=== PATIENT | female | born 1950 | race Caucasian/White ===

== ENCOUNTER → 2016-10-31 | Outpatient (CLI) | payer OTHER ==
--- NOTE | 2016-11-01 11:31 | MM ---
Reason for exam: screening (asymptomatic). Last mammogram was performed 2 years and 8 months ago. History: Patient is postmenopausal. Family history of breast cancer in grandmother at age 38. Physical Findings: A clinical breast exam by your physician is recommended on an annual basis and results should be correlated with mammographic findings. MG Screening Mammo w CAD Bilateral CC, MLO, and XCCL view(s) were taken. Prior study comparison: February 15, 2014, left breast MG work up mamm w CAD LT. February 08, 2014, bilateral MG screening mammo w CAD. The breast tissue is almost entirely fat. No significant changes when compared with prior studies. ASSESSMENT: Benign, BI-RAD 2 RECOMMENDATION: Routine screening mammogram of both breasts in 1 year.
== END | disposition home or self-care (01) ==
LOC: RADMAMWWP 10:11
PROVIDERS: ATTEND Family Medicine
DX: Z12.31 Encounter for screening mammogram for malignant neoplasm of breast (principal)

== ENCOUNTER 2017-03-24 18:39 | Observation (INO) | payer OTHER ==
[2017-03-24] MEDS ORDERED: SODIUM CHLORIDE 0.9% 500 ML IV STA (19:38)
[2017-03-24] MEDS ORDERED: MORPHINE SULFATE 4 MG/ML SYRINGE IVP STA (19:38)
[2017-03-24] MEDS ORDERED: ASPIRIN 325 MG TAB PO STA (19:38)
[2017-03-24 20:16] LABS: Basophils # (A) 0.1 k/uL (0-0.2); Basophils % (A) 1 %; CH 31.3; CHCM 33.6; Eosinophils # (A) 0.3 k/uL (0-0.7); Eosinophils % (A) 3 %; HCT 43.3 % (34.0-46.0); HDW 2.49; HGB 14.3 gm/dL (11.4-16.0); Luc # (Auto) 0.21; Luc % (Auto) 2; Lymphocytes # (A) 2.8 k/uL (1.0-4.8); Lymphocytes % (A) 29 %; MCH 30.9 pg (25.0-35.0); MCHC 33.1 g/dL (31.0-37.0); MCV 93.6 fL (80.0-100.0); Mean Platelet Volume 7.5; Monocytes # (A) 0.8 k/uL (0-1.0); Monocytes % (A) 8 %; Neutrophils # (A) 5.4 k/uL (1.3-7.7); Neutrophils % (A) 57 %; RBC 4.63 m/uL (3.80-5.40); RDW 13.6 % (11.5-15.5); WBC 9.5 k/uL (3.8-10.6)
--- NOTE | 2017-03-24 20:26 | XR ---
EXAMINATION TYPE: XR chest 2V DATE OF EXAM: 03/24/2017 COMPARISON: NONE HISTORY: Chest pain TECHNIQUE: Frontal and lateral views of the chest are obtained. FINDINGS: There is no heart failure nor confluent pneumonic infiltrate. Costophrenic angles are palmira r. Heart appears enlarged. There are no hilar masses. There are chest leads. IMPRESSION: Cardiomegaly. No active cardiopulmonary disease.
--- NOTE | 2017-03-24 20:29 | XR ---
EXAMINATION TYPE: XR shoulder complete LT DATE OF EXAM: 03/24/2017 COMPARISON: NONE HISTORY: Shoulder pain after a fall TECHNIQUE: 3 views FINDINGS: I see no fracture nor dislocation. Glenohumeral joint appears anatomic. The articular surfa ce of the humeral head is not seen to best advantage. IMPRESSION: Limited exam. No fracture seen. Additional profile views of the shoulder joint might be h elpful for further evaluation.
--- NOTE | 2017-03-24 20:30 | XR ---
EXAMINATION TYPE: XR hand complete RT DATE OF EXAM: 03/24/2017 COMPARISON: 04/24/2012 HISTORY: Pain TECHNIQUE: 3 views FINDINGS: There is narrowing and spurring at the first carpometacarpal joint. There is narrowing of r adiocarpal joint space. There is mild sclerosis in the lunate. There is narrowing of the third MP mario nt space with mild spurring. There is spurring of the IP joints. There are no erosions. IMPRESSION: Osteoarthritis. No fracture seen. No change compared to old exam.
[2017-03-24 20:31] LABS: Anion Gap 11 mmol/L; Blood Urea Nitrogen 20 mg/dL (7-17); Calcium 9.7 mg/dL (8.4-10.2); Carbon Dioxide 24 mmol/L (22-30); Chloride 104 mmol/L (98-107); Glucose 131 mg/dL (74-99); Non-African American GFR(MDRD) >60 (>60 ml/min/1.73 sqM); Sodium 139 mmol/L (137-145)
--- NOTE | 2017-03-24 20:40 | XR ---
EXAMINATION TYPE: XR Hip LT and AP Pelvis DATE OF EXAM: 03/24/2017 COMPARISON: NONE HISTORY: Pain TECHNIQUE: A single AP view of the pelvis is obtained. Two views of the left hip are obtained. Findings Exam is limited slightly by obesity. Pelvic ring appears intact. Sacroiliac joints are intact. Proxim al left femur and hip joint appear intact. IMPRESSION: No acute abnormality of the pelvis and left hip. No fracture seen.
--- NOTE | 2017-03-24 20:42 | XR ---
EXAMINATION TYPE: XR knee limited LT DATE OF EXAM: 03/24/2017 COMPARISON: NONE HISTORY: Pain TECHNIQUE: 2 views FINDINGS: There is severe narrowing of the medial joint space. There is moderate spurring of the femo ral and tibial condyles. There is spurring at patellofemoral joint. I see no fracture. IMPRESSION: Moderately severe osteoarthritis. No fracture.
[2017-03-24] MEDS ORDERED: methylPREDNISolone SOD SUCCI 125 MG/2 ML VIAL IV STA (21:05)
[2017-03-24] MEDS ORDERED: IPRATROPIUM-ALBUTEROL 3 ML NEB INHALATION STA (21:06)
[2017-03-24] MEDS ORDERED: KETOROLAC 30 MG/ML 1 ML VIAL IVP STA (22:02)
[2017-03-24] MEDS ORDERED: HYDROmorphone 1 MG/ML 1 ML SYRINGE IVP STA (22:02)
[2017-03-24] MEDS ORDERED: ONDANSETRON 4 MG/2 ML VIAL IVP PRN (22:06)
[2017-03-24] MEDS ORDERED: NALOXONE 0.4 MG/ML 1 ML VIAL IV PRN (22:06)
[2017-03-24] MEDS ORDERED: MORPHINE SULFATE 4 MG/ML SYRINGE IV PRN (22:06)
[2017-03-24] MEDS ORDERED: KETOROLAC 30 MG/ML 1 ML VIAL IVP PRN (22:06)
--- NOTE | 2017-03-24 22:25 | ED ---
General Adult HPI - General Chief complaint: Fall Stated complaint: fall down 4 cement steps, left shoulder, side hip Source: patient Mode of arrival: wheelchair Limitations: no limitations - History of Present Illness Initial comments: 66-year-old female with significant past medical history is present for evaluation of left-sided injuries secondary to fall down 4 stairs at [facility]. 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 She states that she has pain at her left shoulder, left side of her chest, left hip, and left knee. She was able to walk and ambulate at the scene however she continues to have pain. There is limited range of motion to the left shoulder. She states yesterday she had some chest pressure with shortness of breath this resolved but following the fall she states that it came back and the shortness of breath has persisted since arriving in the ED. She denies any lightheadedness, dizziness, syncope, fevers, chills, nausea, vomiting, abdominal pain. There were no symptoms preceding the fall as it was entirely mechanical. - Related Data Home Medications Medication Instructions Recorded Confirmed Furosemide [Lasix] 40 mg PO DAILY 07/15/14 03/24/17 Hydrochlorothiazide [Hydrodiuril] 12.5 mg PO DAILY 07/15/14 03/24/17 Lisinopril [Prinivil] 20 mg PO DAILY 07/15/14 03/24/17 Meloxicam 15 mg PO DAILY 07/15/14 03/24/17 Albuterol Inhaler [Ventolin Hfa 2 puff INHALATION RT-QID PRN 01/05/16 03/24/17 Inhaler] Aspirin EC [Ecotrin Low Dose] 81 mg PO DAILY 03/24/17 03/24/17 Insulin NPH/Reg Insulin 70/30 22 unit SQ W/SUPPER 03/24/17 03/24/17 [humuLIN 70/30 VIAL] Insulin NPH/Reg Insulin 70/30 30 unit SQ AC-BRKFST 03/24/17 03/24/17 [humuLIN 70/30 VIAL] metFORMIN HCL [Metformin HCl] 1,000 mg PO BID-W/MEALS 03/24/17 03/24/17 Allergies Allergy/AdvReac Type Severity Reaction Status Date / Time egg AdvReac Diarrhea Verified 03/24/17 19:16 Review of Systems ROS Statement: Those systems with pertinent positive or pertinent negative responses have been documented in the HPI. ROS Other: All systems not noted in ROS Statement are negative. Constitutional: Denies: fever, chills Eyes: Denies: eye pain, eye discharge ENT: Denies: ear pain, throat pain Respiratory: Reports: dyspnea. Denies: cough Cardiovascular: Reports: chest pain. Denies: palpitations, dyspnea on exertion , orthopnea Endocrine: Denies: fatigue, heat or cold intolerance Gastrointestinal: Denies: abdominal pain, nausea, vomiting Genitourinary: Denies: urgency, dysuria Musculoskeletal: Reports: other (Left shoulder, left chest, left hip, and left knee pain). Denies: back pain, arthralgia, myalgia Skin: Denies: rash, lesions Neurological: Denies: headache, weakness Psychiatric: Denies: anxiety, depression Hematological/Lymphatic: Denies: easy bleeding, easy bruising Past Medical History Past Medical History: Cancer, Diabetes Mellitus, GERD/Reflux, Osteoarthritis (OA ), Pneumonia Additional Past Medical History / Comment(s): AFTER HEART CATH APPROX 1 YEARS AGO states TAKES Linsinopril As preventative for cad, does not have htn or cad.SKIN CACNER ON HER CHEEK, TAKES TUMS FOR HEARTBURN. RT LEG CELLULITS. History of Any Multi-Drug Resistant Organisms: None Reported Past Surgical History: Section, Heart Catheterization, Hysterectomy Additional Past Surgical History / Comment(s): surgical repair of nose 1981.SKIN CANCER REMOVED FROM HER CHEEK Past Anesthesia/Blood Transfusion Reactions: No Reported Reaction Past Psychological History: No Psychological Hx Reported Smoking Status: Former smoker - Past Family History Father Family Medical History: Deep Vein Thrombosis (DVT) Mother Family Medical History: No Reported History General Exam Limitations: no limitations General appearance: alert, in distress, obese Head exam: Present: atraumatic, normocephalic, normal inspection Eye exam: Present: normal appearance, PERRL, EOMI. Absent: scleral icterus, conjunctival injection, periorbital swelling ENT exam: Present: normal exam, mucous membranes moist Neck exam: Present: normal inspection. Absent: tenderness, meningismus, lymphadenopathy Respiratory exam: Present: normal lung sounds bilaterally, other (Mildly tachypneic). Absent: respiratory distress, wheezes, rales, rhonchi, stridor Cardiovascular Exam: Present: regular rate, normal rhythm, normal heart sounds. Absent: systolic murmur, diastolic murmur, rubs, gallop, clicks GI/Abdominal exam: Present: soft, normal bowel sounds. Absent: distended, tenderness, guarding, rebound, rigid Rectal exam: Present: deferred Extremities exam: Present: normal inspection, full ROM, normal capillary refill. Absent: tenderness, pedal edema, joint swelling, calf tenderness Back exam: Present: normal inspection Neurological exam: Present: alert, oriented X3, CN II-XII intact Psychiatric exam: Present: normal affect, normal mood Skin exam: Present: warm, dry, intact, normal color. Absent: rash Course Vital Signs 03/24/17 03/24/17 03/24/17 18:51 19:58 21:19 Temperature 98.2 F Pulse Rate 71 73 73 Respiratory 20 18 Rate Blood Pressure 111/60 117/68 O2 Sat by Pulse 97 98 Oximetry 03/24/17 03/24/17 03/24/17 21:22 21:43 22:10 Temperature Pulse Rate 73 78 73 Respiratory 18 20 Rate Blood Pressure 113/66 123/70 O2 Sat by Pulse 99 97 Oximetry EKG Findings - EKG Comments: EKG Findings:: Normal Sinus rhythm with a ventricular rate of 71, WA interval 172, QRS 92, QT/QTc 400/434. Medical Decision Making - Medical Decision Making 66-year-old female presenting for evaluation of fall down 4 steps at [facility]. She also states that yesterday she had chest pressure and shortness of breath which started again after the fall down the stairs. She states that her pain is in her left shoulder, left chest, left hip, and left knee. She states that the shortness of breath feels as though she's got water in her lungs that she just not feeling quite herself and she feels exhausted. On physical examination lungs are clear to auscultation bilaterally. She is appropriate oxygen saturation, heart rate, and blood pressure. The patient does not perk out however she is very low risk on well prescription here for PE. Her last stress test was years ago per the patient. We'll perform x-rays to rule out any fractures and obtain labs, EKG, chest x-ray, and provide aspirin for chest pressure and shortness of breath. X-rays revealed no acute process. Labs revealed no significant abnormalities including a negative troponin. The patient however remained in pain throughout her stay and another dose of pain control was provided. She also appeared to have increased work of breathing and was diaphoretic. Breathing treatments and steroids were given but there was no change in her clear lung sounds. She continued to look tired. Admission discussed with the patient and she agreed. Dr. Graham accepted the admission with request for stress test and consult with cardiology. We'll also add on a d-dimer to evaluate for pulmonary embolism. Admission order placed, and bed request and admitted. - Lab Data Result diagrams: 03/24/17 19:50 03/24/17 19:50 Lab Results 03/24/17 03/24/17 03/24/17 Range/Units 19:50 19:50 19:50 WBC 9.5 (3.8-10.6) k/uL RBC 4.63 (3.80-5.40) m/uL Hgb 14.3 (11.4-16.0) gm/dL Hct 43.3 (34.0-46.0) % MCV 93.6 (80.0-100.0) fL MCH 30.9 (25.0-35.0) pg MCHC 33.1 (31.0-37.0) g/dL RDW 13.6 (11.5-15.5) % Plt Count 229 (150-450) k/uL Neutrophils % 57 % Lymphocytes % 29 % Monocytes % 8 % Eosinophils % 3 % Basophils % 1 % Neutrophils # 5.4 (1.3-7.7) k/uL Lymphocytes # 2.8 (1.0-4.8) k/uL Monocytes # 0.8 (0-1.0) k/uL Eosinophils # 0.3 (0-0.7) k/uL Basophils # 0.1 (0-0.2) k/uL D-Dimer (<0.60) mg/L FEU Sodium 139 (137-145) mmol/L Potassium 4.0 (3.5-5.1) mmol/L Chloride 104 (98-107) mmol/L Carbon Dioxide 24 (22-30) mmol/L Anion Gap 11 mmol/L BUN 20 H (7-17) mg/dL Creatinine 0.74 (0.52-1.04) mg/dL Est GFR (MDRD) Af Amer >60 (>60 ml/min/1.73 sqM) Est GFR (MDRD) Non-Af >60 (>60 ml/min/1.73 sqM) Glucose 131 H (74-99) mg/dL Calcium 9.7 (8.4-10.2) mg/dL Troponin I (0.000-0.034) ng/mL NT-Pro-B Natriuret Pep 26 pg/mL 03/24/17 03/24/17 Range/Units 19:50 19:50 WBC (3.8-10.6) k/uL RBC (3.80-5.40) m/uL Hgb (11.4-16.0) gm/dL Hct (34.0-46.0) % MCV (80.0-100.0) fL MCH (25.0-35.0) pg MCHC (31.0-37.0) g/dL RDW (11.5-15.5) % Plt Count (150-450) k/uL Neutrophils % % Lymphocytes % % Monocytes % % Eosinophils % % Basophils % % Neutrophils # (1.3-7.7) k/uL Lymphocytes # (1.0-4.8) k/uL Monocytes # (0-1.0) k/uL Eosinophils # (0-0.7) k/uL Basophils # (0-0.2) k/uL D-Dimer 1.40 H (<0.60) mg/L FEU Sodium (137-145) mmol/L Potassium (3.5-5.1) mmol/L Chloride (98-107) mmol/L Carbon Dioxide (22-30) mmol/L Anion Gap mmol/L BUN (7-17) mg/dL Creatinine (0.52-1.04) mg/dL Est GFR (MDRD) Af Amer (>60 ml/min/1.73 sqM) Est GFR (MDRD) Non-Af (>60 ml/min/1.73 sqM) Glucose (74-99) mg/dL Calcium (8.4-10.2) mg/dL Troponin I <0.012 (0.000-0.034) ng/mL NT-Pro-B Natriuret Pep pg/mL Disposition Clinical Impression: Fall, Shortness of breath, Musculoskeletal pain Disposition: ADMITTED IP TO THIS [facility] Decision to Admit Reason: Admit from EC Decision Date: 03/24/17 Decision Time: 22:21
[2017-03-24 23:23] VITALS: BMI 54.8
[2017-03-24 23:40] LABS: Glucose,Whole Blood 204 mg/dL (75-99)
[2017-03-24] MEDS ORDERED: RX INFO: IV CONTRAST WAS GIVEN 1 EACH MISC MISCELLANE PRN (23:58)
[2017-03-25] MEDS ORDERED: SODIUM CHLORIDE 0.9% 1,000 ML IV SCH (00:15)
[2017-03-25] MEDS: HYDROmorphone 1 MG/ML 1 ML SYRINGE IV PRN ×3 (00:58→18:21)
--- NOTE | 2017-03-25 01:46 | CT ---
EXAM: CT Angiography Chest With Intravenous Contrast CLINICAL HISTORY: Reason: elevated d - dimer with sob and chest pain TECHNIQUE: Axial computed tomographic angiography images of the chest with intravenous contrast using pulmonary embolism protocol. CTDI is 24.4 mGy and DLP is 878 mGy-cm. This CT exam was performed using one or more of the following dose reduction techniques: automated exposure control, adjustment of the mA and/or kV according to patient size, and/or use of iterative reconstruction technique. MIP reconstructed images were created and reviewed. Coronal and sagittal reformatted images were created and reviewed. COMPARISON: CXR 03/24/17 FINDINGS: Pulmonary arteries: Slightly suboptimal evaluation for pulmonary embolism due to noise. No pulmonary embolism seen. Aorta: No acute findings. No thoracic aortic aneurysm. Lungs: Bibasilar platelike atelectasis. Pleural space: Unremarkable. No significant effusion. No pneumothorax. Heart: Mild cardiomegaly. No significant pericardial effusion. No evidence of RV dysfunction. Bones/joints: Multilevel degenerative changes of the spine. No acute fracture. No dislocation. Soft tissues: Unremarkable. Lymph nodes: Unremarkable. No enlarged lymph nodes. IMPRESSION: 1. Slightly suboptimal evaluation for pulmonary embolism due to noise. No pulmonary embolism seen. 2. Bibasilar platelike atelectasis.
[2017-03-25 02:40] LABS: Basophils # (A) 0.1 k/uL (0-0.2); Basophils % (A) 1 %; CH 30.7; CHCM 32.9; Eosinophils % (A) 1 %; HCT 40.4 % (34.0-46.0); HDW 2.55; HGB 13.7 gm/dL (11.4-16.0); Luc # (Auto) 0.06; Luc % (Auto) 1; Lymphocytes # (A) 0.7 k/uL (1.0-4.8); Lymphocytes % (A) 10 %; MCH 31.9 pg (25.0-35.0); MCHC 33.9 g/dL (31.0-37.0); Mean Platelet Volume 7.2; Monocytes # (A) 0.1 k/uL (0-1.0); Monocytes % (A) 2 %; Neutrophils # (A) 5.7 k/uL (1.3-7.7); Neutrophils % (A) 86 %; RDW 13.4 % (11.5-15.5); WBC 6.6 k/uL (3.8-10.6); WBC (Perox) 7.02
[2017-03-25 03:11] LABS: Anion Gap 9 mmol/L; Calcium 9.3 mg/dL (8.4-10.2); Carbon Dioxide 23 mmol/L (22-30); Chloride 106 mmol/L (98-107); Creatine Kinase 261 U/L (30-135); Glucose 266 mg/dL (74-99); Non-African American GFR(MDRD) >60 (>60 ml/min/1.73 sqM); Sodium 138 mmol/L (137-145)
[2017-03-25 03:20] LABS: Blood Urea Nitrogen 20 mg/dL (7-17); Potassium 4.3 mmol/L (3.5-5.1)
[2017-03-25 03:23] LABS: Creatine Kinase MB 1.6 ng/mL (0.0-2.4); Troponin I <0.012 ng/mL (0.000-0.034)
[2017-03-25] MEDS ORDERED: REGADENOSON 0.4 MG/5 ML SYRINGE IV ONE (06:00)
[2017-03-25 07:08] LABS: Glucose,Whole Blood 281 mg/dL (75-99)
[2017-03-25] MEDS ORDERED: metFORMIN 500 MG TAB PO SCH (07:30)
[2017-03-25] MEDS: ALBUTEROL NEBULIZED 2.5 MG/3 ML INHALATION PRN ×3 (08:13→19:43)
[2017-03-25] MEDS ORDERED: HYDROCHLOROTHIAZIDE 12.5 MG CAP PO SCH (09:00)
[2017-03-25 09:24] LABS: Creatine Kinase 211 U/L (30-135)
[2017-03-25 09:36] LABS: Creatine Kinase MB 1.9 ng/mL (0.0-2.4); Troponin I <0.012 ng/mL (0.000-0.034)
[2017-03-25] MEDS: INSULIN NPH/REG INSULIN 70/30 300 UNIT/3 ML VIAL SQ SCH ×2 (10:06→17:44)
[2017-03-25] MEDS: LISINOPRIL 20 MG TAB PO SCH (10:08)
[2017-03-25] MEDS: FUROSEMIDE 40 MG TAB PO SCH (10:08)
[2017-03-25] MEDS: ATORVASTATIN 40 MG TAB PO SCH (11:57)
[2017-03-25] MEDS: ASPIRIN 81 MG CHEW PO SCH (11:57)
[2017-03-25] MEDS: MELOXICAM 7.5 MG TAB PO SCH (11:57)
--- NOTE | 2017-03-25 11:59 | CONS ---
DATE OF CONSULTATION: Mrs. Quesada is a 66-year-old female who is seen for the evaluation of chest pain. Patient's medical records reviewed. This patient fell down the four stairs at [employer]. She was walking out of the [employer], tripped over the stairs and fell on her left side. Patient has been having pain in her left shoulder, left side of the chest, left hip and left knee. The patient was evaluated in the emergency room, she had a CT scan of the chest done which was normal. Chest x-ray and the x-rays are normal. There is no definite evidence of any fracture. Patient having complaints of left-sided chest pain, which increases with breathing. Denies any significant shortness of breath. Patient has a history of diabetes. There is no history of hypertension. She had a cardiac catheterization done several years ago which was normal. Patient's physical activities are limited because of the arthritis and the pain in the back. Past medical history includes history of diabetes, history of , history of hysterectomy, surgical repair of the nose and the skin cancer. Patient's home medications include insulin, metformin, aspirin, Prinivil, Lasix, hydrochlorothiazide. Physical examination at present reveals a 66-year-old obesely-built, has been having left-sided chest pain. Patient was afebrile in the emergency room. Blood pressure is 117/68 mmHg. HEENT examination is negative. Neck is supple. There is no increase in jugular venous pressure. Both the carotid pulses are felt. There is no bruit. Chest is symmetrical. HEART: The PMI is not felt. First and second heart sounds are normal. There is no evidence of any murmur. Lungs are clinically clear to auscultation and percussion. Abdomen is soft. Liver and spleen are not enlarged. EXTREMITIES: Peripheral pulsations are 2+. EKG shows normal sinus rhythm without any acute ischemic changes. Patient's troponins are normal, proBNP level was 26. FINAL IMPRESSION: 1. This patient's left-sided chest pain is secondary to injury, mostly musculoskeletal chest wall pain. The x-ray does not show any definite evidence of fracture. 2. Patient has a history of diabetes. 3. Patient has a history of morbid obesity. RECOMMENDATIONS: Symptomatic medical therapy is recommended. Echo and Doppler study will be done. In view of the history of diabetes, I will start the patient on Lipitor 40 mg daily.
[2017-03-25 12:23] LABS: Glucose,Whole Blood 235 mg/dL (75-99)
[2017-03-25 17:21] LABS: Glucose,Whole Blood 179 mg/dL (75-99)
[2017-03-25 17:41] LABS: Hemoglobin A1C 6.1 % (4.2-6.1)
[2017-03-25] MEDS: INSULIN LISPRO (humaLOG) 300 UNIT/3 ML VIAL SQ SCH ×3 (17:45→21:35)
[2017-03-25 21:03] LABS: Glucose,Whole Blood 166 mg/dL (75-99)
[2017-03-26 06:37] LABS: Glucose,Whole Blood 148 mg/dL (75-99)
[2017-03-26] MEDS: ALBUTEROL NEBULIZED 2.5 MG/3 ML INHALATION PRN ×2 (07:15→13:19)
[2017-03-26] MEDS: INSULIN LISPRO (humaLOG) 300 UNIT/3 ML VIAL SQ SCH ×5 (07:59→18:04)
[2017-03-26] MEDS: INSULIN NPH/REG INSULIN 70/30 300 UNIT/3 ML VIAL SQ SCH ×2 (08:00→18:04)
[2017-03-26] MEDS: MELOXICAM 7.5 MG TAB PO SCH (08:03)
[2017-03-26] MEDS: LISINOPRIL 20 MG TAB PO SCH (08:05)
[2017-03-26] MEDS: FUROSEMIDE 40 MG TAB PO SCH (08:05)
[2017-03-26] MEDS: ATORVASTATIN 40 MG TAB PO SCH (08:05)
[2017-03-26] MEDS: ASPIRIN 81 MG CHEW PO SCH (08:06)
[2017-03-26 12:11] LABS: Glucose,Whole Blood 109 mg/dL (75-99)
[2017-03-26] MEDS: HYDROmorphone 1 MG/ML 1 ML SYRINGE IV PRN (14:23)
[2017-03-26 15:48] VITALS: BP 98/57; RESP 18; TEMP 97.5
[2017-03-26 16:39] VITALS: PULSE 63
[2017-03-26 17:25] LABS: Glucose,Whole Blood 120 mg/dL (75-99)
[2017-03-27] MEDS ORDERED: metFORMIN 500 MG TAB PO SCH (07:30)
--- NOTE | 2017-03-27 09:51 | ECHOF ---
Referral Reason:chest pain MEASUREMENTS -------- HEIGHT: 157.5 cm WEIGHT: 136.1 kg BP: 117/63 Ao Diam: 3.0 cm (2.0 - 3.7) AV Cusp: 1.8 cm (1.5 - 2.6) LA Diam: 2.3 cm (2.7 - 3.8) MV EXCURSION: 20.824 mm (> 18.000) MV EF SLOPE: 148 mm/s (70 - 150) EPSS: 0.4 cm MV E George: 0.68 m/s MV DecT: 276 ms MV A George: 0.49 m/s MV E/A Ratio: 1.39 RAP: 5.00 mmHg RVSP: 12.89 mmHg FINDINGS -------- Sinus rhythm. This was a technically difficult study with suboptimal views. There is mild concentric left ventricular hypertrophy. Overall left ventricular systolic function is normal with, an EF between 55 - 60 %. The RV was not well visualized. The left atrium was not well visualized. The right atrium was not well visualized. 1.5mg of Definity was utilized for enhancement of images The aortic valve was not well visualized. The mitral valve was not well visualized. The tricuspid valve was not well visualized. The pulmonic valve was not well visualized. The aortic root size is normal. The inferior vena cava is dilated with poor inspiratory collapse which is consistent with estimated right atrial pressure of 20 mmHg. The pericardium is normal. There is no pericardial effusion. CONCLUSIONS -------- 1. Sinus rhythm. 2. The mitral valve was not well visualized. 3. The tricuspid valve was not well visualized. 4. The pulmonic valve was not well visualized. 5. The aortic root size is normal. 6. The inferior vena cava is dilated with poor inspiratory collapse which is consistent with estimated right atrial pressure of 20 mmHg. 7. The pericardium is normal. 8. There is no pericardial effusion. 9. This was a technically difficult study with suboptimal views. 10. There is mild concentric left ventricular hypertrophy. 11. Overall left ventricular systolic function is normal with, an EF between 55 - 60 %. 12. The RV was not well visualized. 13. The left atrium was not well visualized. 14. The right atrium was not well visualized. 15. 1.5mg of Definity was utilized for enhancement of images 16. The aortic valve was not well visualized. GROUND [employer]QUIPMENT FITTER: Elan Garcia RDCS
== END 2017-03-26 19:00 | disposition home or self-care (01) ==
LOC: EC 18:39 → 3OBS 22:07
PROVIDERS: ADMIT Family Medicine; ATTEND Family Medicine
DX: R07.89 Other chest pain (principal); E11.9 Type 2 diabetes mellitus without complications; E66.01 Morbid (severe) obesity due to excess calories; Z68.43 Body mass index [BMI] 50.0-59.9, adult; R06.02 Shortness of breath; R61 Generalized hyperhidrosis; M25.552 Pain in left hip; M25.562 Pain in left knee; M25.512 Pain in left shoulder; R79.89 Other specified abnormal findings of blood chemistry; M54.9 Dorsalgia, unspecified; M19.90 Unspecified osteoarthritis, unspecified site; Z79.4 Long term (current) use of insulin; Z79.899 Other long term (current) drug therapy; Z79.84 Long term (current) use of oral hypoglycemic drugs; Z79.82 Long term (current) use of aspirin; Z79.1 Long term (current) use of non-steroidal anti-inflammatories (NSAID); Z91.012 Allergy to eggs; Z87.01 Personal history of pneumonia (recurrent); Z85.828 Personal history of other malignant neoplasm of skin; Z87.891 Personal history of nicotine dependence; W10.9XXA Fall (on) (from) unspecified stairs and steps, initial encounter; Y92.22 Religious institution as the place of occurrence of the external cause
CPT/HCPCS: 99285; 96361 ×2; 96374 ×2; 96375 ×4; 96376 ×2; 36415; 94640 ×5; 94760 ×2; 93005; 85379; 83880; 80048 ×2; 83036; 82550; 82553; 84484 ×2; 85025 ×2; 71020; 73030; 73502; 73130; 73560; 71275; G0378 ×3; C8929; J2270; J2930; Q9967; J1885; Q9957; J1170 ×3; 93306

== ENCOUNTER → 2021-08-30 | Outpatient (CLI) | payer MEDICARE, OTHER ==
--- NOTE | 2021-08-31 07:45 | US ---
EXAMINATION TYPE: US kidneys/renal and bladder DATE OF EXAM: 08/30/2021 COMPARISON: NONE CLINICAL HISTORY: N28.1 Renal cyst. Pt states possible right renal cyst visualized at outside facilit y EXAM MEASUREMENTS: Right Kidney: 11.5 x 4.2 x 5.3 cm Left Kidney: 10.6 x 5.3 x 5.1 cm Right Kidney: No evidence of hydro, probable small cyst mid/lateral= 1.1 x 0.8 x 1.1 cm Left Kidney: No evidence of hydro, very limited visualization due to morbidly obese pt Bladder: Unable to visualize due to morbid obesity There is no evidence for hydronephrosis at this point in time. No nephrolithiasis is seen. No solid masses are identified. The urinary bladder is anechoic. Bilateral ureteral jets are seen. IMPRESSION: Right renal cyst as noted above.
== END | disposition home or self-care (01) ==
LOC: RADUSWWP 16:30
PROVIDERS: ATTEND Urology
DX: N28.1 Cyst of kidney, acquired (principal)
CPT/HCPCS: 76770

== ENCOUNTER 2022-10-17 12:45 | Emergency (ER) | payer MEDICARE, OTHER ==
[2022-10-17 13:03] VITALS: RESP 20; TEMP 97.4
--- NOTE | 2022-10-17 14:02 | XR ---
EXAMINATION TYPE: XR knee complete RT DATE OF EXAM: 10/17/2022 COMPARISON: NONE HISTORY: Pain TECHNIQUE: Three views are submitted. FINDINGS: There is severe narrowing of the medial compartment knee joint and patellofemoral compartment with hy pertrophic spurring. Diffuse osteopenia. There is no acute fracture or dislocation. Small suprapatell ar bursal fluid collection noted. Osseous structures are intact. No acute fracture seen. IMPRESSION: 1. No acute fracture or dislocation. 2. Severe osteoarthritis.
--- NOTE | 2022-10-17 14:03 | XR ---
EXAM TYPE: LUMBAR SPINE X RAY SERIES COMPARISON: NONE HISTORY: Pain TECHNIQUE: 3 views are submitted. FINDINGS: Alignment is anatomic. The pedicles are intact. The transverse processes are intact. There is scol iosis with severe multilevel degenerative disc disease and facet arthropathy. Multilevel foraminal en croachment. IMPRESSION: 1. Severe multilevel degenerative disc disease with scoliosis and multilevel foraminal encroachment.
--- NOTE | 2022-10-17 14:05 | XR ---
EXAMINATION TYPE: XR thoracic spine 2V DATE OF EXAM: 10/17/2022 COMPARISON: NONE HISTORY: Pain TECHNIQUE: 3 views submitted FINDINGS: Alignment is anatomic. There is no compression deformities. Scoliosis with severe multilevel degener ative disc disease and facet arthropathy. Coarsened interstitial cardiomegaly. IMPRESSION: 1. Scoliosis with severe degenerative disc disease at all levels. No definite compression deformities seen. 2. Cardiomegaly correlate for chronic interstitial lung disease.
--- NOTE | 2022-10-17 14:32 | CT ---
EXAMINATION TYPE: CT brain jose turner con DATE OF EXAM: 10/17/2022 COMPARISON: None HISTORY: fall, weakness CT DLP: 1856.7 mGycm Automated exposure control for dose reduction was used. TECHNIQUE: CT scan of the head and cervical spine are performed without contrast. FINDINGS: There is no acute intracranial hemorrhage, mass effect, or midline shift identified. The ventricles and sulci are mild degenerative change.. The globes are intact and the visualized sinuse s are clear. Right basal ganglia calcification seen. There is a questionable soft tissue fullness on the posterior soft tissues adjacent to the trachea on the right most likely in the basis of superimposed structures and noncontrast technique. Alignment is anatomic. Odontoid intact. There is severe degenerative disc disease, posterior spondylo sis, uncovertebral joint hypertrophy, and foraminal encroachment at virtually all levels. No obvious acute fracture. Prevertebral soft tissue structures are within normal limits. IMPRESSION: 1. There is no acute fracture or dislocation evident in the cervical spine. Severe degenerative disc disease at all levels with multilevel foraminal encroachment consider follow-up MRI. 2. No acute intracranial hemorrhage, mass effect, or midline shift is seen. 3. Mild soft tissue fullness in the posterior right paratracheal region may be related to noncontrast technique and superimposed structures but could be followed up with short-term ultrasound or CT soft tissue neck.
[2022-10-17] MEDS ORDERED: Acetaminophen-Codeine 300-30mg TAB PO STA (14:42)
--- NOTE | 2022-10-17 14:42 | ED ---
Fall HPI - General Chief Complaint: Fall Stated Complaint: fall, generalized weakness Time Seen by Provider: 10/17/22 12:58 Source: patient, EMS Mode of arrival: EMS - History of Present Illness Initial Comments: Patient complains of injuries from an accidental trip and fall. She has no chest pain. She has no belly pain. She has no nausea or vomiting. She has no diaphoresis. She has no focal deficits. She had no loss of consciousness. - Related Data Home Medications Medication Instructions Recorded Confirmed Furosemide [Lasix] 40 mg PO DAILY 07/15/14 03/24/17 Meloxicam 15 mg PO DAILY 07/15/14 03/24/17 hydroCHLOROthiazide [Hydrodiuril] 12.5 mg PO DAILY 07/15/14 03/24/17 lisinopriL [Prinivil] 20 mg PO DAILY 07/15/14 03/24/17 Albuterol Inhaler [Ventolin Hfa 2 puff INHALATION RT-QID PRN 01/05/16 03/24/17 Inhaler] Aspirin EC [Ecotrin Low Dose] 81 mg PO DAILY 03/24/17 03/24/17 Insulin NPH/Reg Insulin 70/30 22 unit SQ W/SUPPER 03/24/17 03/24/17 [humuLIN 70/30 VIAL] Insulin NPH/Reg Insulin 70/30 30 unit SQ AC-BRKFST 03/24/17 03/24/17 [humuLIN 70/30 VIAL] metFORMIN HCL 1,000 mg PO BID-W/MEALS 03/24/17 03/24/17 Previous Rx's Medication Instructions Recorded Atorvastatin [Lipitor] 40 mg PO DAILY #90 tab 03/26/17 Allergies Allergy/AdvReac Type Severity Reaction Status Date / Time egg AdvReac Diarrhea Verified 03/24/17 19:16 Review of Systems ROS Statement: Those systems with pertinent positive or pertinent negative responses have been documented in the HPI. ROS Other: All systems not noted in ROS Statement are negative. Past Medical History Past Medical History: Cancer, Diabetes Mellitus, GERD/Reflux, Osteoarthritis (OA), Pneumonia Additional Past Medical History / Comment(s): AFTER HEART CATH APPROX 1 YEARS AGO states TAKES Linsinopril As preventative for cad, does not have htn or cad.SKIN CACNER ON HER CHEEK, TAKES TUMS FOR HEARTBURN. RT LEG CELLULITS. History of Any Multi-Drug Resistant Organisms: None Reported Past Surgical History: Section, Heart Catheterization, Hysterectomy Additional Past Surgical History / Comment(s): surgical repair of nose 1982.SKIN CANCER REMOVED FROM HER CHEEK Past Anesthesia/Blood Transfusion Reactions: No Reported Reaction Past Psychological History: No Psychological Hx Reported - Past Family History Father Family Medical History: Deep Vein Thrombosis (DVT) Mother Family Medical History: No Reported History General Exam General appearance: alert, in no apparent distress Head exam: Present: atraumatic, normocephalic, normal inspection Eye exam: Present: normal appearance, PERRL, EOMI. Absent: scleral icterus, conjunctival injection, periorbital swelling ENT exam: Present: normal exam, mucous membranes moist Neck exam: Present: normal inspection. Absent: tenderness, meningismus, lymphadenopathy Respiratory exam: Present: normal lung sounds bilaterally. Absent: respiratory distress, wheezes, rales, rhonchi, stridor Cardiovascular Exam: Present: regular rate, normal rhythm, normal heart sounds. Absent: systolic murmur, diastolic murmur, rubs, gallop, clicks GI/Abdominal exam: Present: soft, normal bowel sounds. Absent: distended, tenderness, guarding, rebound, rigid Extremities exam: Present: normal inspection, full ROM, normal capillary refill. Absent: tenderness, pedal edema, joint swelling, calf tenderness Back exam: Present: normal inspection Neurological exam: Present: alert, oriented X3, CN II-XII intact Psychiatric exam: Present: normal affect, normal mood Skin exam: Present: warm, dry, intact, normal color. Absent: rash Course Vital Signs 10/17/22 10/17/22 12:59 13:03 Temperature 97.4 F L Pulse Rate 90 Respiratory 20 Rate Blood Pressure 82/57 102/62 O2 Sat by Pulse 97 Oximetry Medical Decision Making - Medical Decision Making Patient complains of injuries from an accidental fall. I obtained a CT head and cervical spine I independently reviewed and read showing no acute intracranial bleed or mass or fracture. X-ray of the right knee wasn't reviewed and read by me showing no fracture. I considered additional imaging of the chest and pelvis, however the patient has no injuries or tenderness there. I consider laboratory studies, the patient has no metabolic complaints. Patient is administered pain medicine by mouth. She feels better. There is no acute emergency requiring hospitalization. She is stable for discharge. Disposition Clinical Impression: Knee pain Disposition: HOME SELF-CARE Condition: Good Instructions (If sedation given, give patient instructions): Fall Prevention for Older Adults (ED) Is patient prescribed a controlled substance at d/c from ED?: No Referrals: Dirk Butler DO [Primary Care Provider] - 1-2 days
[2022-10-17 14:56] VITALS: BP 111/78; PULSE 92
== END 2022-10-17 16:12 | disposition home or self-care (01) ==
LOC: EC 12:45
DX: M25.561 Pain in right knee (principal); E11.9 Type 2 diabetes mellitus without complications; I25.10 Atherosclerotic heart disease of native coronary artery without angina pectoris; Z79.82 Long term (current) use of aspirin; Z79.84 Long term (current) use of oral hypoglycemic drugs; Z91.012 Allergy to eggs; W01.0XXA Fall on same level from slipping, tripping and stumbling without subsequent striking against object, initial encounter
CPT/HCPCS: 70450; 72070; 72100; 72125; 99285

== ENCOUNTER 2022-10-19 14:53 | Inpatient (IN) | payer MEDICARE, OTHER ==
--- NOTE | 2022-10-19 15:21 | CT ---
EXAMINATION TYPE: CT brain wo con DATE OF EXAM: 10/19/2022 COMPARISON: None HISTORY: 72 year-old female right-sided weakness, pain, headache, dysphasia which seems to have resol yaima. TECHNIQUE: Examination was done in axial plane without intravenous contrast. Coronal and sagittal r econstructions performed. CT DLP: 1146.6 mGycm Automated exposure control for dose reduction was used. FINDINGS: There is no evidence of acute intracranial hemorrhage, acute ischemic changes, mass, mass-effect, or extra-axial fluid collection. There is no effacement of cerebral sulci or basal subarachnoid cister ns. There is no hydrocephalus. There is no midline shift. Montes-white matter distinction is preserv ed. The anterior nasal septum is deviated toward the left. Orbits and globes are intact. Paranasal sinuse s and mastoid air cells well pneumatized. IMPRESSION: No acute intracranial abnormality seen.
[2022-10-19 16:12] LABS: Anisocytosis Slight; Basophils # (A) 0.1 k/uL (0-0.2); Basophils % (A) 1 %; Eosinophils # (A) 0.2 k/uL (0-0.7); Eosinophils % (A) 3 %; HCT 26.9 % (34.0-46.0); HGB 8.4 gm/dL (11.4-16.0); Hypochromasia Slight; Lymphocytes # (A) 1.1 k/uL (1.0-4.8); Lymphocytes % (A) 16 %; MCH 25.2 pg (25.0-35.0); MCHC 31.3 g/dL (31.0-37.0); MCV 80.3 fL (80.0-100.0); Mean Platelet Volume 7.8; Microcytosis Slight; Monocytes # (A) 0.7 k/uL (0-1.0); Monocytes % (A) 10 %; Neutrophils # (A) 4.5 k/uL (1.3-7.7); Neutrophils % (A) 67 %; Platelet Count 281 k/uL (150-450); RBC 3.36 m/uL (3.80-5.40); WBC 6.7 k/uL (3.8-10.6)
[2022-10-19 16:19] LABS: Partial Thromboplastin Time 23.5 sec (22.0-30.0); Prothrombin Time 10.4 sec (9.0-12.0)
--- NOTE | 2022-10-19 16:35 | CT ---
EXAMINATION TYPE: CT angio head neck DATE OF EXAM: 10/19/2022 COMPARISON: Brain same day HISTORY: 72-year-old female aphasia, right side weakness TECHNIQUE: Contiguous axial scanning of the head and neck performed with IV Contrast, patient injecte d with 130 mL of Isovue 370. Coronal/sagittal reconstructions performed. CT DLP: 2186.3 mGycm Automated exposure control for dose reduction was used. FINDINGS: 3-D reconstructions generated on a dedicated independent workstation. The patient was injected twice as the initial scan was delayed due to patient movement resulting in missed triggering. The second scan is better but remains limited due to large body habitus and slight delay. NECK: Heart mildly enlarged. Groundglass changes in the lungs could be generalized atelectasis or pulmonary vascular congestion are interstitial pneumonitis. Clinically correlate. Conventional arch vessel branching anatomy. The vertebral arteries appear codominant and patent throughout the course. The left common and left internal carotid arteries are widely patent by neck criteria. The right common and right internal carotid arteries are widely patent thoracic criteria. 1 cm hypodense nodule left thyroid lobe can be further evaluated with thyroid ultrasound when patient able. HEAD: Both vertebral and basilar arteries appear patent as does the posterior circulation. Unable to exclud e a moderate focal stenosis at the junction of the P1 and P2 segment right SUPERINTENDENT FACTORY, thin cut axial image 223. Mild apical scarring calcifications within the glenoid and supraclinoid internal carotid arteries. Al lowing for exam limitations, no significant narrowing or occlusion is seen. Remainder of the anterior circulation appears grossly patent as well along for the exam limitations. IMPRESSION: Neck: 1. Widely patent vertebral and carotid arteries of the neck allowing for examination limitations. 2. Cardiomegaly. Groundglass changes in the visualized lungs could represent generalized atelectasis. Correlate to exclude pulmonary vascular congestion. Head: 3. Possible moderate focal stenosis at the junction of the P1 and P2 segment of the right SUPERINTENDENT [employer]CTORY. 4. Otherwise, allowing for the exam limitations, no evident large vessel intracranial arterial occlus ion. No other significant stenosis or aneurysmal change is seen.
[2022-10-19 16:39] LABS: Albumin 3.3 g/dL (3.5-5.0); Calcium 8.3 mg/dL (8.4-10.2); Potassium 4.4 mmol/L (3.5-5.1); Total Bilirubin 0.5 mg/dL (0.2-1.3); Total Protein 7.3 g/dL (6.3-8.2)
--- NOTE | 2022-10-19 16:57 | XR ---
EXAMINATION TYPE: XR chest 2V DATE OF EXAM: 10/19/2022 COMPARISON: 03/24/2017 HISTORY: Altered mental status TECHNIQUE: 2 view FINDINGS: There is no heart failure nor confluent pneumonic infiltrate. Costophrenic angles are clear . Thoracic aorta is atheromatous. No pleural effusion. Bony thorax is intact. IMPRESSION: No active cardiopulmonary disease. No change
--- NOTE | 2022-10-19 17:48 | ED ---
General Adult HPI - General Chief complaint: Neuro Symptoms/Deficit Stated complaint: neuro deficit Time Seen by Provider: 10/19/22 14:58 Source: patient, EMS Mode of arrival: EMS - History of Present Illness Initial comments: This is a 72-year-old female with extensive past medical history presents emergency department via EMS for right upper or right lower extremity weakness. The patient was just discharged from the hospital yesterday and stated that she was at home when approximately at 9:30 AM, the patient stated that she had a headache and then had weakness in the right lower and right upper extremity. The patient contacted her physician who told her to come to the emergency department for evaluation. The patient did arrive later in the afternoon. On arrival, the patient stated that she had some increasing shakiness in the right upper extremity stated that her reported weakness was the same. The patient denied any other acute pain or complaints including any lightheadedness, dizziness as well as any chest pain or shortness of breath. The patient was resting in bed comfortably. - Related Data Home Medications Medication Instructions Recorded Confirmed lisinopriL [Prinivil] 20 mg PO DAILY 07/15/14 10/19/22 Albuterol Inhaler [Ventolin Hfa 2 puff INHALATION RT-Q6H PRN 01/05/16 10/19/22 Inhaler] Atorvastatin [Lipitor] 40 mg PO HS 10/19/22 10/19/22 DULoxetine HCL [Cymbalta] 60 mg PO HS 10/19/22 10/19/22 Dulaglutide [Trulicity] 0.75 mg SQ ALATORRE 10/19/22 10/19/22 Ergocalciferol [Vitamin D2 (1250 1,250 mcg PO ALATORRE 10/19/22 10/19/22 Mcg = 08905 Iu)] Furosemide [Lasix] 20 mg PO DAILY 10/19/22 10/19/22 Gabapentin [Neurontin] 300 mg PO TID 10/19/22 10/19/22 Insulin Aspart Prot/Insuln Asp 14 unit SQ W/SUPPER 10/19/22 10/19/22 [Novolog Mix 70-30 Flexpen] Insulin Aspart Prot/Insuln Asp 20 unit SQ W/BRKFST 10/19/22 10/19/22 [Novolog Mix 70-30 Flexpen] Potassium Chloride ER [K-Dur 10] 10 meq PO DAILY 10/19/22 10/19/22 tiZANidine [Zanaflex] 4 mg PO BID 10/19/22 10/19/22 traMADol HCL 50 mg PO TID PRN 10/19/22 10/19/22 Allergies Allergy/AdvReac Type Severity Reaction Status Date / Time egg AdvReac Diarrhea Verified 10/19/22 16:56 Review of Systems ROS Statement: Those systems with pertinent positive or pertinent negative responses have been documented in the HPI. ROS Other: All systems not noted in ROS Statement are negative. Past Medical History Past Medical History: Cancer, Diabetes Mellitus, GERD/Reflux, Osteoarthritis (OA), Pneumonia Additional Past Medical History / Comment(s): AFTER HEART CATH APPROX 1 YEARS AGO states TAKES Linsinopril As preventative for cad, does not have htn or cad.SKIN CACNER ON HER CHEEK, TAKES TUMS FOR HEARTBURN. RT LEG CELLULITS. History of Any Multi-Drug Resistant Organisms: None Reported Past Surgical History: Section, Heart Catheterization, Hysterectomy Additional Past Surgical History / Comment(s): surgical repair of nose 1981.SKIN CANCER REMOVED FROM HER CHEEK Past Anesthesia/Blood Transfusion Reactions: No Reported Reaction Past Psychological History: No Psychological Hx Reported Past Alcohol Use History: Rare Past Drug Use History: None Reported - Past Family History Father Family Medical History: Deep Vein Thrombosis (DVT) Mother Family Medical History: No Reported History General Exam Limitations: no limitations General appearance: alert, in no apparent distress, obese Head exam: Present: atraumatic, normocephalic, normal inspection Eye exam: Present: normal appearance, PERRL Pupils: Present: normal accommodation ENT exam: Present: normal exam, normal oropharynx, mucous membranes moist Neck exam: Present: normal inspection, full ROM Respiratory exam: Present: normal lung sounds bilaterally Cardiovascular Exam: Present: regular rate, normal rhythm, normal heart sounds GI/Abdominal exam: Present: soft, normal bowel sounds Extremities exam: Present: normal inspection, pedal edema (Chronic lymphedema) Back exam: Present: normal inspection, full ROM Neurological exam: Present: alert, oriented X3, CN II-XII intact, other (Slightly decreased strength in the right upper extremity versus left upper extremity. Bilateral lower extremities had significant weakness secondary to chronic lymphedema) Psychiatric exam: Present: normal affect, normal mood Skin exam: Present: warm, dry Course Vital Signs 0110/19/22 10/19/22 14:57 15:46 16:15 Temperature 97.7 F Pulse Rate 97 101 H 99 Respiratory 18 20 21 Rate Blood Pressure 136/87 127/86 144/88 O2 Sat by Pulse 96 92 L Oximetry 10/19/22 10/19/22 10/19/22 16:30 16:45 17:00 Temperature Pulse Rate 97 98 Respiratory 19 20 Rate Blood Pressure 143/98 121/75 O2 Sat by Pulse 94 L 100 Oximetry 10/19/22 10/19/22 10/19/22 17:15 17:30 17:45 Temperature Pulse Rate 100 103 H 100 Respiratory 20 22 20 Rate Blood Pressure 159/90 157/90 157/90 O2 Sat by Pulse 97 Oximetry 10/19/22 10/19/22 10/19/22 18:01 18:15 18:45 Temperature Pulse Rate 106 H 99 104 H Respiratory 20 20 Rate Blood Pressure 158/83 121/75 159/97 O2 Sat by Pulse 96 94 L 93 L Oximetry EKG Findings - EKG Comments: EKG Findings:: In EKG was obtained and was interpreted by myself showing a rate of 101, WI interval of 188, QRS duration of 103 and QTC of 4:15. This EKG showed a sinus tachycardia with no ST segment elevation or depression noted. Medical Decision Making - Medical Decision Making Was pt. sent in by a medical professional or institution ([facility], [facility], urgent care, hospital, or snf...) When possible be specific @ -No Did you speak to anyone other than the patient for history (EMS, parent, family, police, friend...)? What history was obtained from this source @ -Yes, EMS Did you review nursing and triage notes (agree or disagree)? Why? @ -I reviewed and agree with nursing and triage notes Were old charts reviewed (outside hosp., previous admission, EMS record, old EKG, old radiological studies, urgent care reports/EKG's, snf records)? Report findings @ -No old charts were reviewed Differential Diagnosis (chest pain, altered mental status, abdominal pain women, abdominal pain men, vaginal bleeding, weakness, fever, dyspnea, syncope, headache, dizziness, GI bleed, back pain, seizure, CVA, palpatations, mental health)? @ -Acute CVA, sepsis EKG interpreted by me (3pts min.). @ -As above X-rays interpreted by me (1pt min.). @ -Chest x-ray was obtained and interpreted by myself showing no acute cardiopulmonary disease. CT interpreted by me (1pt min.). @ -CT head and CTA head and neck per stroke protocol was obtained and was interpreted by myself. CT brain showed no acute pathology. CTA of the head and neck showed widely patent vertebral carotid arteries of the neck. There was cardiomegaly with ground glass changes visualized lungs that could represent an was atelectasis. There is possible moderate focal stenosis at the junction of the P1 and P2 segment of the right PREPARATORY TECHNICIAN. Otherwise there was no large vessel intracranial arterial occlusion. U/S interpreted by me (1pt. min.). @ -None done What testing was considered but not performed or refused? (CT, X-rays, U/S, labs)? Why? @ -None What meds were considered but not given or refused? Why? @ -None Did you discuss the management of the patient with other professionals (professionals i.e. , PA, [facility], lab, RT, psych nurse, psychotherapist social worker, bus attendant, teacher, identification officer, mental health case manager)? Give summary @ -Yes, neuro interventionalist, Dr. Johnson and admitted [facility] Alyce Vazquez Was smoking cessation discussed for >3mins.? @ -No Was critical care preformed (if so, how long)? @ -Yes, see above Were there social determinants of health that impacted care today? How? (Homelessness, low income, unemployed, alcoholism, drug addiction, tra nsportation, low edu. Level, literacy, decrease access to med. care, alf, rehab)? @ -No Was there de-escalation of care discussed even if they declined (Discuss DNR or withdrawal of care, Hospice)? DNR status @ -No What co-morbidities impacted this encounter? (DM, HTN, Smoking, COPD, CAD, Cancer, CVA, ARF, Chemo, Hep., AIDS, mental health diagnosis, sleep apnea, morbid obesity)? @ -Hypertension, chronic pain, diabetes, obesity Was patient admitted / discharged? Hospital course, mention meds given and route, prescriptions, significant lab abnormalities, going to OR and other pert inent info. @ -The patient was seen and evaluated emergency department. Physical exam, the patient was resting in bed without any acute distress. Vital signs were stable on admission. Due to the patient's complaints, a code stroke was called initially on arrival at 1501. The initial NIH was 3. The patient was outside the window did not require any TPA at this time. Imaging was largely unremarkable and Dr. Johnson agree with the plan of care including stroke pathway without TPA. The patient was told of this plan as well was admitted in stable condition for further workup and evaluation down the stroke pathway. Undiagnosed new problem with uncertain prognosis? @ -No Drug Therapy requiring intensive monitoring for toxicity (Heparin, Nitro, Insulin, Cardizem)? @ -No Were any procedures done? @ -No Diagnosis/symptom? @ -CVA Acute, or Chronic, or Acute on Chronic? @ -Acute Uncomplicated (without systemic symptoms) or Complicated (systemic symptoms)? @ -Complicated Side effects of treatment? @ -No Exacerbation, Progression, or Severe Exacerbation? @ -No Poses a threat to life or bodily function? How? (Chest pain, [place], HI, pneumonia, PE, COPD, DKA, ARF, appy, cholecystitis, CVA, Diverticulitis, Homicidal, Suicidal, threat to staff... and all critical care pts) @ -Yes, CVA could worsening cause worsening deficit and possible . - Lab Data Result diagrams: 10/19/22 15:51 10/19/22 15:51 Lab Results 10/19/22 10/19/22 10/19/22 Range/Units 15:51 15:51 15:51 WBC 6.7 (3.8-10.6) k/uL RBC 3.36 L (3.80-5.40) m/uL Hgb 8.4 L (11.4-16.0) gm/dL Hct 26.9 L (34.0-46.0) % MCV 80.3 (80.0-100.0) fL MCH 25.2 (25.0-35.0) pg MCHC 31.3 (31.0-37.0) g/dL RDW 17.0 H (11.5-15.5) % Plt Count 281 (150-450) k/uL MPV 7.8 Neutrophils % 67 % Lymphocytes % 16 % Monocytes % 10 % Eosinophils % 3 % Basophils % 1 % Neutrophils # 4.5 (1.3-7.7) k/uL Lymphocytes # 1.1 (1.0-4.8) k/uL Monocytes # 0.7 (0-1.0) k/uL Eosinophils # 0.2 (0-0.7) k/uL Basophils # 0.1 (0-0.2) k/uL Hypochromasia Slight Anisocytosis Slight Microcytosis Slight PT 10.4 (9.0-12.0) sec INR 1.0 (<1.2) APTT 23.5 (22.0-30.0) sec Sodium 135 L (137-145) mmol/L Potassium 4.4 (3.5-5.1) mmol/L Chloride 102 (98-107) mmol/L Carbon Dioxide 29 (22-30) mmol/L Anion Gap 4 mmol/L BUN 14 (7-17) mg/dL Creatinine 1.17 H (0.52-1.04) mg/dL Est GFR (CKD-EPI)AfAm 55 (>60 ml/min/1.73 sqM) Est GFR (CKD-EPI)NonAf 47 (>60 ml/min/1.73 sqM) Glucose 103 H (74-99) mg/dL POC Glucose (mg/dL) (70-110) mg/dL POC Glu Motor Coach Supervisor ID Calcium 8.3 L (8.4-10.2) mg/dL Total Bilirubin 0.5 (0.2-1.3) mg/dL AST 29 (14-36) U/L ALT 25 (4-34) U/L Alkaline Phosphatase 111 (38-126) U/L Troponin I (0.000-0.034) ng/mL Total Protein 7.3 (6.3-8.2) g/dL Albumin 3.3 L (3.5-5.0) g/dL 10/19/22 10/19/22 Range/Units 15:51 18:29 WBC (3.8-10.6) k/uL RBC (3.80-5.40) m/uL Hgb (11.4-16.0) gm/dL Hct (34.0-46.0) % MCV (80.0-100.0) fL MCH (25.0-35.0) pg MCHC (31.0-37.0) g/dL RDW (11.5-15.5) % Plt Count (150-450) k/uL MPV Neutrophils % % Lymphocytes % % Monocytes % % Eosinophils % % Basophils % % Neutrophils # (1.3-7.7) k/uL Lymphocytes # (1.0-4.8) k/uL Monocytes # (0-1.0) k/uL Eosinophils # (0-0.7) k/uL Basophils # (0-0.2) k/uL Hypochromasia Anisocytosis Microcytosis PT (9.0-12.0) sec INR (<1.2) APTT (22.0-30.0) sec Sodium (137-145) mmol/L Potassium (3.5-5.1) mmol/L Chloride (98-107) mmol/L Carbon Dioxide (22-30) mmol/L Anion Gap mmol/L BUN (7-17) mg/dL Creatinine (0.52-1.04) mg/dL Est GFR (CKD-EPI)AfAm (>60 ml/min/1.73 sqM) Est GFR (CKD-EPI)NonAf (>60 ml/min/1.73 sqM) Glucose (74-99) mg/dL POC Glucose (mg/dL) 113 H (70-110) mg/dL POC Glu Motor Coach Supervisor ID Alyce Mancera Calcium (8.4-10.2) mg/dL Total Bilirubin (0.2-1.3) mg/dL AST (14-36) U/L ALT (4-34) U/L Alkaline Phosphatase (38-126) U/L Troponin I <0.012 (0.000-0.034) ng/mL Total Protein (6.3-8.2) g/dL Albumin (3.5-5.0) g/dL Critical Care Time Critical Care Time: Yes Total Critical Care Time: 35 Disposition Clinical Impression: Cerebrovascular accident (CVA) Disposition: ADMITTED IP TO THIS [facility] Condition: Stable Is patient prescribed a controlled substance at d/c from ED?: No Referrals: Dirk Butler DO [Primary Care Provider] - 1-2 days Time of Disposition: 17:30 Decision to Admit Reason: Admit from EC Decision Date: 10/19/22 Decision Time: 17:30
[2022-10-19 18:30] LABS: Glucose,Whole Blood 113 mg/dL (70-110)
[2022-10-19] MEDS ORDERED: GABAPENTIN 300 MG CAP PO STA (18:30)
[2022-10-19] MEDS ORDERED: ASPIRIN 325 MG TAB PO STA (19:07)
[2022-10-19] MEDS: tiZANidine 4 MG TAB PO SCH (21:54)
[2022-10-19] MEDS: ATORVASTATIN 40 MG TAB PO SCH (21:54)
[2022-10-19] MEDS: DULoxetine HCL 60 MG CAPSULE.DR PO SCH (21:54)
[2022-10-19] MEDS: traMADol 50 MG TAB PO PRN (21:55)
[2022-10-19] MEDS: GABAPENTIN 300 MG CAP PO SCH (21:55)
[2022-10-20 04:39] LABS: Appearance,Urine Clear (Clear); Bilirubin,Urine Negative (Negative); Blood,Urine Negative (Negative); Color,Urine Light Yellow; Glucose,Urine (UA) Negative (Negative); Ketones,Urine Negative (Negative); Leukocyte Esterase,Urine Negative (Negative); Nitrite,Urine Negative (Negative); Protein,Urine Negative (Negative); Specific Gravity,Urine 1.024 (1.001-1.035); Urobilinogen,Urine <2.0 mg/dL (<2.0)
[2022-10-20 05:59] LABS: Glucose,Whole Blood 129 mg/dL (70-110)
[2022-10-20] MEDS: traMADol 50 MG TAB PO PRN ×2 (06:01→21:11)
[2022-10-20] MEDS: INSULN ASP PRT/INSULIN ASPART 100 UNIT/ML 10 ML VIAL SQ SCH ×2 (06:49→17:16)
[2022-10-20 07:11] LABS: Anisocytosis Slight; Basophils # (A) 0.1 k/uL (0-0.2); Basophils % (A) 1 %; Eosinophils # (A) 0.3 k/uL (0-0.7); Eosinophils % (A) 7 %; HCT 25.8 % (34.0-46.0); HGB 8.1 gm/dL (11.4-16.0); Hypochromasia Moderate; Lymphocytes # (A) 1.6 k/uL (1.0-4.8); Lymphocytes % (A) 32 %; MCH 25.5 pg (25.0-35.0); MCHC 31.3 g/dL (31.0-37.0); MCV 81.3 fL (80.0-100.0); Mean Platelet Volume 7.5; Monocytes # (A) 0.5 k/uL (0-1.0); Monocytes % (A) 11 %; Neutrophils # (A) 2.2 k/uL (1.3-7.7); Neutrophils % (A) 45 %; Platelet Count 282 k/uL (150-450); RBC 3.18 m/uL (3.80-5.40); RDW 17.2 % (11.5-15.5); WBC 4.9 k/uL (3.8-10.6)
[2022-10-20 07:31] LABS: African American GFR (CKD) 58 (>60 ml/min/1.73 sqM); Anion Gap 3 mmol/L; Blood Urea Nitrogen 12 mg/dL (7-17); Calcium 8.3 mg/dL (8.4-10.2); Carbon Dioxide 28 mmol/L (22-30); Chloride 106 mmol/L (98-107); Glucose 111 mg/dL (74-99); Non-African American GFR(CKD) 51 (>60 ml/min/1.73 sqM); Potassium 4.5 mmol/L (3.5-5.1); Sodium 137 mmol/L (137-145)
[2022-10-20] MEDS: POTASSIUM CHLORIDE ER 10 MEQ TAB.ER.PRT PO SCH (09:58)
[2022-10-20] MEDS: tiZANidine 4 MG TAB PO SCH ×2 (09:58→21:11)
[2022-10-20] MEDS: GABAPENTIN 300 MG CAP PO SCH ×3 (09:58→21:11)
[2022-10-20] MEDS: FUROSEMIDE 20 MG TAB PO SCH (09:58)
[2022-10-20] MEDS: lisinopriL 20 MG TAB PO SCH (09:58)
--- NOTE | 2022-10-20 11:02 | P.CNNES ---
History of Present Illness Consult date: 10/20/22 Requesting physician: Donte Patten Reason for Consult: cva History of Present Illness: As is a 72-year-old woman with history of diabetes who presented emergency department on 10/19/2022 because of right-sided weakness as well as uncontrolled shaken on the right side. She stated that for the past couple weeks she's been having right arm and leg weakness that got worse yesterday in the morning as well as that been having shaking episodes yesterday that lasted almost the entire day with right leg jerking. During that the jerking and shaking episode she denies any loss of consciousness, urinary bowel incontinence, any tongue bite or soreness. She was able to converse during these episodes but could not control them. She stated that that she had at at a very severe headache right behind the left and right ear and was 12/10 and was a hurting pain and lasted for hours. Denies any photophobia, phonophobia any nausea or vomiting. She denies any history of stroke or TIA or seizures in the past. She feels the tremor jerk and has resolved. The headache also has resolved. She is not on any antiplatelets since the history of nosebleeds. Denies any history of atrial fibrillation or flutter. Some of the workup during his hospital visit consisted of: Initial serum glucose is 103, sodium is 135, calcium is 8.3, AST and ALT is within normal limits CT of the head is reported as no acute intracranial abnormality seen. I personally reviewed this to the head and I feel the questionably the patient has right hypodensity over the posterolateral temporal/occipital region. Otherwise no mass effect, no bleed. CT angiography of the head is reported as possible moderate focal stenosis at the junction of P1 and the P2 segment of the right VENDETTE. Otherwise allowing for the exam and limitation, no evidence of large vessel intracranial arterial occlusion. No other significant stenosis or aneurysm at changes seen. CT angiography of the neck is reported as wildly patent vertebral and carotid arteries of the neck allowing for the examination limitation. Cardiomegaly. Groundglass changes in the visualized lung could represent generalized atelectasis. Correlate to exclude pulmonary vascular congestion. Stroke code was activated by the ED team and initial NIH per the ED is a 3. No IV TPA since the patient is outside the window and the risk outweighed the benefit. ED spoke with stroke Attending (Dr. Johnson) No intervention according to the ED note the was notified by the stroke team Review of Systems Review of system: The 12 point system was reviewed and apparent positive and negative per HPI. Past Medical History Past Medical History: Cancer, COPD, Diabetes Mellitus, GERD/Reflux, Hyperlipidemia, Hypertension, Osteoarthritis (OA), Pneumonia Additional Past Medical History / Comment(s): AFTER HEART CATH APPROX 1 YEARS AGO states TAKES Linsinopril As preventative for cad, does not have htn or cad.SKIN CACNER ON HER CHEEK, TAKES TUMS FOR HEARTBURN. RT LEG CELLULITS. History of Any Multi-Drug Resistant Organisms: None Reported Past Surgical History: Section, Heart Catheterization, Hysterectomy Additional Past Surgical History / Comment(s): surgical repair of nose 1981.SKIN CANCER REMOVED FROM HER CHEEK Past Anesthesia/Blood Transfusion Reactions: No Reported Reaction Past Psychological History: No Psychological Hx Reported Smoking Status: Former smoker Past Alcohol Use History: None Reported, Rare Past Drug Use History: None Reported - Past Family History Father Family Medical History: Deep Vein Thrombosis (DVT) Mother Family Medical History: Cancer Medications and Allergies Home Medications Medication Instructions Recorded Confirmed Type lisinopriL [Prinivil] 20 mg PO DAILY 07/15/14 10/19/22 History Albuterol Inhaler [Ventolin Hfa 2 puff INHALATION RT-Q6H PRN 01/05/16 10/19/22 History Inhaler] Atorvastatin [Lipitor] 40 mg PO HS 10/19/22 10/19/22 History DULoxetine HCL [Cymbalta] 60 mg PO HS 10/19/22 10/19/22 History Dulaglutide [Trulicity] 0.75 mg SQ ALATORRE 10/19/22 10/19/22 History Ergocalciferol [Vitamin D2 (1250 1,250 mcg PO ALATORRE 10/19/22 10/19/22 History Mcg = 63396 Iu)] Furosemide [Lasix] 20 mg PO DAILY 10/19/22 10/19/22 History Gabapentin [Neurontin] 300 mg PO TID 10/19/22 10/19/22 History Insulin Aspart Prot/Insuln Asp 14 unit SQ W/SUPPER 10/19/22 10/19/22 History [Novolog Mix 70-30 Flexpen] Insulin Aspart Prot/Insuln Asp 20 unit SQ W/BRKFST 10/19/22 10/19/22 History [Novolog Mix 70-30 Flexpen] Potassium Chloride ER [K-Dur 10] 10 meq PO DAILY 10/19/22 10/19/22 History tiZANidine [Zanaflex] 4 mg PO BID 10/19/22 10/19/22 History traMADol HCL 50 mg PO TID PRN 10/19/22 10/19/22 History Allergies Allergy/AdvReac Type Severity Reaction Status Date / Time egg AdvReac Diarrhea Verified 10/19/22 16:56 Physical Examination - Vital Signs Vital Signs: Vital Signs Temp Pulse Pulse Resp BP BP BP 10/20/22 08:15 98.1 F 84 16 124/72 10/20/22 04:00 97.9 F 98 18 143/71 10/20/22 01:59 99 18 10/20/22 00:00 97.9 F 97 17 122/69 10/19/22 20:12 106 H 18 147/68 10/19/22 20:00 98.5 F 111 H 18 138/69 10/19/22 19:30 108 H 153/79 10/19/22 19:15 106 H 22 162/89 10/19/22 19:00 104 H 22 159/97 10/19/22 18:45 104 H 20 121/75 10/19/22 18:30 121/75 10/19/22 18:15 99 121/75 10/19/22 18:01 106 H 20 158/83 10/19/22 17:45 100 20 157/90 10/19/22 17:30 103 H 22 157/90 10/19/22 17:15 100 20 159/90 10/19/22 17:00 98 20 10/19/22 16:45 97 19 121/75 10/19/22 16:30 143/98 10/19/22 16:15 99 21 144/88 10/19/22 15:46 101 H 20 127/86 10/19/22 14:57 97.7 F 97 18 136/87 Pulse Ox 10/20/22 08:15 92 L 10/20/22 04:00 93 L 10/20/22 01:59 10/20/22 00:00 96 10/19/22 20:12 95 10/19/22 20:00 94 L 10/19/22 19:30 92 L 10/19/22 19:15 93 L 10/19/22 19:00 92 L 10/19/22 18:45 93 L 10/19/22 18:30 10/19/22 18:15 94 L 10/19/22 18:01 96 10/19/22 17:45 97 10/19/22 17:30 10/19/22 17:15 10/19/22 17:00 100 10/19/22 16:45 94 L 10/19/22 16:30 10/19/22 16:15 10/19/22 15:46 92 L 10/19/22 14:57 96 Intake and Output 10/19/22 10/20/22 10/20/22 22:59 06:59 14:59 Output Total 900 Balance -900 Output: Urine 900 Other: Voiding Method External Catheter External Catheter Weight 139.706 kg GENERAL: The patient is a morbid obese woman sitting in a recliner chair and is not in acute distress. CHEST: The heart rate is regular rate rhythm. No murmurs to auscultation. LUNG: Clear to auscultation bilaterally no wheezing noted throughout. Not labored breathing. ABDOMEN/GI: Bowel sounds present in all 4 quadrants. No tenderness to palpation throughout. NEUROLOGICAL: Higher mental function: The patient is awake, alert, oriented to self, place and time. Patient is following commands. No aphasia and no neglect. Cranial nerves: The pupils are round, equal and reactive to light and accommodation. Visual wal[place] are full to confrontation throughout. Extraocular movement is intact no nystagmus is noted. Facial sensation is normal to touch throughout. The facial strength is normal throughout. Hearing is normal bilaterally to hand rub. Tongue is midline and moved [id number] without any difficulty. No dysarthria is noted. Shoulder shrug is normal bilaterally. Motor: The strength is right side is 4- (limitation in the right upper because of pain due to arthritis). Otherwise 5 over 5 throughout. on left Normal tone and bulk. Has lymphedema of bilateral lowers. Cerebellum: Normal finger to nose bilaterally. Sensation: Sensation is decreased in the right lower to touch. Reflexes (right/left): Hard to assess because of patient obesity. Plantars are mute bilaterally. Results - Laboratory Findings CBC and BMP: 10/20/22 06:43 10/20/22 06:43 Abnormal Lab Findings: Abnormal Labs 10/19/22 10/19/22 10/19/22 15:51 15:51 18:29 RBC 3.36 L Hgb 8.4 L Hct 26.9 L RDW 17.0 H Sodium 135 L Creatinine 1.17 H Glucose 103 H POC Glucose (mg/dL) 113 H Calcium 8.3 L Albumin 3.3 L 10/20/22 10/20/22 10/20/22 05:58 06:43 06:43 RBC 3.18 L Hgb 8.1 L Hct 25.8 L RDW 17.2 H Sodium Creatinine 1.11 H Glucose 111 H POC Glucose (mg/dL) 129 H Calcium 8.3 L Albumin Assessment and Plan Assessment: Right-sided weakness with numbness for the past couples weeks but has worsened yesterday: Probable subacute ischemic stroke Transient episode of uncontrolled tremor drinking over the right side: Possible due to above Diabetes mellitus History of Leg cellulitis Lipedema in the lower extremity Morbid obesity Osteoarthritis Plan: I ordered MRI of the brain as well as MRA of the head and neck to rule out stroke as well as any focal stenosis. I ordered routine EEG since the patient's having tremors uncontrolled jerking on the right side yesterday but that resolved to rule out any seizure activity with active or any epileptiform discharges that increases risk for seizures. EEG will be performed this Saturday. In the ED the patient was given aspirin 325 once. I will not start the patient on antiplatelets for now since the records the patient she has history of epistaxis and she was on aspirin and was discontinued by her physician because of concern of medication effect. If she does have a stroke will consider possibly Plavix 75 mg daily. Continue Lipitor 10 mg daily at bedtime percentage of reflexes Lipid panel is ordered is pending I ordered TSH, 2D echo Every 4 hours neuro checks Placed on cardiac monitoring PT OT and MACHINE PECAN PICKER is consulted We'll defer the rest of the medical management to primary team For DVT prophylaxis I started the patient on subcu heparin 5000 units every 8 hours Plan is discussed with patient and her nurse. Thank you for the consultation. Time with Patient: Greater than 30
[2022-10-20 11:32] LABS: Glucose,Whole Blood 109 mg/dL (70-110)
--- NOTE | 2022-10-20 11:46 | P.HPIM ---
History of Present Illness H&P Date: 10/19/22 Chief Complaint: Right upper or right lower extremity weakness 72-year-old female with extensive past medical history presents emergency department via EMS for right upper or right lower extremity weakness. The patient was just discharged from the hospital yesterday and stated that she was at home when approximately at 9:30 AM, the patient stated that she had a headache and then had weakness in the right lower and right upper extremity. The patient contacted her physician who told her to come to the emergency department for evaluation. The patient did arrive later in the afternoon. On arrival, the patient stated that she had some increasing shakiness in the right upper extremity stated that her reported weakness was the same. The patient denied any other acute pain or complaints including any lightheadedness, dizziness as well as any chest pain or shortness of breath. The patient was resting in bed comfortably. Blood work completed in ED reveals a WBC of 6.7, hemoglobin of 8.4, platelet count of 281, sodium of 135, potassium 4.4, BUN/creatinine of 14/1.17, troponin of less than 0.012 EKG reveals sinus tachycardia without any acute ST or T-wave changes Chest x-ray is negative for any acute cardiopulmonary disease CT brain reveals no acute intracranial abnormality CTA head and neck reveals possible moderate focal stenosis at the junction of P1 and P2 segment of right [employer] TE[employer]ER otherwise no evidence of large vessel intracranial arterial occlusion Patient is admitted for further neurology workup Review of Systems REVIEW OF SYSTEMS: CONSTITUTIONAL: No fever, no malaise, no fatigue. HEENT: No recent visual problems or hearing problems. Denied any sore throat. CARDIOVASCULAR: No chest pain, orthopnea, PND, no palpitations, no syncope. PULMONARY: No shortness of breath, no cough, no hemoptysis. GASTROINTESTINAL: No diarrhea, no nausea, no vomiting, no abdominal pain. NEUROLOGICAL: No headaches, no weakness, no numbness. HEMATOLOGICAL: Denies any bleeding or petechiae. GENITOURINARY: Denies any burning micturition, frequency, or urgency. MUSCULOSKELETAL/RHEUMATOLOGICAL: Denies any joint pain, swelling, or any muscle pain. ENDOCRINE: Denies any polyuria or polydipsia. The rest of the 14-point review of systems is negative. Past Medical History Past Medical History: Cancer, Diabetes Mellitus, GERD/Reflux, Osteoarthritis (OA), Pneumonia Additional Past Medical History / Comment(s): AFTER HEART CATH APPROX 1 YEARS AGO states TAKES Linsinopril As preventative for cad, does not have htn or cad.SKIN CACNER ON HER CHEEK, TAKES TUMS FOR HEARTBURN. RT LEG CELLULITS. History of Any Multi-Drug Resistant Organisms: None Reported Past Surgical History: Section, Heart Catheterization, Hysterectomy Additional Past Surgical History / Comment(s): surgical repair of nose 1981.SKIN CANCER REMOVED FROM HER CHEEK Past Anesthesia/Blood Transfusion Reactions: No Reported Reaction Past Psychological History: No Psychological Hx Reported Past Alcohol Use History: Rare Past Drug Use History: None Reported - Past Family History Father Family Medical History: Deep Vein Thrombosis (DVT) Mother Family Medical History: No Reported History Medications and Allergies Home Medications Medication Instructions Recorded Confirmed Type lisinopriL [Prinivil] 20 mg PO DAILY 07/15/14 10/19/22 History Albuterol Inhaler [Ventolin Hfa 2 puff INHALATION RT-Q6H PRN 01/05/16 10/19/22 History Inhaler] Atorvastatin [Lipitor] 40 mg PO HS 10/19/22 10/19/22 History DULoxetine HCL [Cymbalta] 60 mg PO HS 10/19/22 10/19/22 History Dulaglutide [Trulicity] 0.75 mg SQ ALATORRE 10/19/22 10/19/22 History Ergocalciferol [Vitamin D2 (1250 1,250 mcg PO ALATORRE 10/19/22 10/19/22 History Mcg = 70451 Iu)] Furosemide [Lasix] 20 mg PO DAILY 10/19/22 10/19/22 History Gabapentin [Neurontin] 300 mg PO TID 10/19/22 10/19/22 History Insulin Aspart Prot/Insuln Asp 14 unit SQ W/SUPPER 10/19/22 10/19/22 History [Novolog Mix 70-30 Flexpen] Insulin Aspart Prot/Insuln Asp 20 unit SQ W/BRKFST 10/19/22 10/19/22 History [Novolog Mix 70-30 Flexpen] Potassium Chloride ER [K-Dur 10] 10 meq PO DAILY 10/19/22 10/19/22 History tiZANidine [Zanaflex] 4 mg PO BID 10/19/22 10/19/22 History traMADol HCL 50 mg PO TID PRN 10/19/22 10/19/22 History Allergies Allergy/AdvReac Type Severity Reaction Status Date / Time egg AdvReac Diarrhea Verified 10/19/22 16:56 Physical Exam Vitals: Vital Signs Temp Pulse Resp BP Pulse Ox 10/19/22 19:30 108 H 153/79 92 L 10/19/22 19:15 106 H 22 162/89 93 L 10/19/22 19:00 104 H 22 159/97 92 L 10/19/22 18:45 104 H 20 121/75 93 L 10/19/22 18:30 121/75 10/19/22 18:15 99 121/75 94 L 10/19/22 18:01 106 H 20 158/83 96 10/19/22 17:45 100 20 157/90 97 10/19/22 17:30 103 H 22 157/90 10/19/22 17:15 100 20 159/90 10/19/22 17:00 98 20 100 10/19/22 16:45 97 19 121/75 94 L 10/19/22 16:30 143/98 10/19/22 16:15 99 21 144/88 10/19/22 15:46 101 H 20 127/86 92 L 10/19/22 14:57 97.7 F 97 18 136/87 96 Intake and Output 10/19/22 10/19/22 10/19/22 06:59 14:59 22:59 Other: Weight 139.706 kg PHYSICAL EXAMINATION: GENERAL: The patient is alert and oriented x3, not in any acute distress. Well developed, well nourished. HEENT: Pupils are round and equally reacting to light. EOMI. No scleral icterus. No conjunctival pallor. Normocephalic, atraumatic. No pharyngeal erythema. No thyromegaly. CARDIOVASCULAR: S1 and S2 present. No murmurs, rubs, or gallops. PULMONARY: Chest is clear to auscultation, no wheezing or crackles. ABDOMEN: Soft, nontender, nondistended, normoactive bowel sounds. No palpable organomegaly. MUSCULOSKELETAL: No joint swelling or deformity. EXTREMITIES: No cyanosis, clubbing, or pedal edema. NEUROLOGICAL: Gross neurological examination did not reveal any focal deficits. SKIN: No rashes. Results CBC & Chem 7: 10/20/22 06:43 10/20/22 06:43 Labs: Abnormal Lab Results - Last 24 Hours (Table) 10/19/22 10/19/22 10/19/22 Range/Units 15:51 15:51 18:29 RBC 3.36 L (3.80-5.40) m/uL Hgb 8.4 L (11.4-16.0) gm/dL Hct 26.9 L (34.0-46.0) % RDW 17.0 H (11.5-15.5) % Sodium 135 L (137-145) mmol/L Creatinine 1.17 H (0.52-1.04) mg/dL Glucose 103 H (74-99) mg/dL POC Glucose (mg/dL) 113 H (70-110) mg/dL Calcium 8.3 L (8.4-10.2) mg/dL Albumin 3.3 L (3.5-5.0) g/dL Assessment and Plan Assessment: 1. Right-sided weakness; acute versus subacute ischemic CVA CT of the head is reported as no acute intracranial abnormality seen. I personally reviewed this to the head and I feel the questionably the patient has right hypodensity over the posterolateral temporal/occipital region. Otherwise no mass effect, no bleed. CT angiography of the head is reported as possible moderate focal stenosis at the junction of P1 and the P2 segment of the right [employer]ER. Otherwise allowing for the exam and limitation, no evidence of large vessel intracranial arterial occlusion. No other significant stenosis or aneurysm at changes seen. CT angiography of the neck is reported as wildly patent vertebral and carotid arteries of the neck allowing for the examination limitation. Cardiomegaly. Groundglass changes in the visualized lung could represent generalized atelectasis. Correlate to exclude pulmonary vascular congestion. Stroke code was activated by the ED team and initial NIH per the ED is a 3. No IV TPA since the patient is outside the window and the risk outweighed the bene fit. -- Patient will be admitted to telemetry; keep nothing by mouth until evaluated by TRAIN CLERK; neuro checks per protocol - Monitor Accu-Cheks with plans to keep blood glucose less than 160; monitor bl ood pressure closely and treat if systolic blood pressures greater than 220 or diastolic blood pressures greater than 120 -- Neurology is consulted; appreciate their input in patient care 2. Episodic transient uncontrolled tremors right side; possible TIA; neurology to see patient 3. Mild acute renal injury; IV fluids in form of normal saline at a rate of 100 mL an hour; we will monitor strict KRYSTAL's, daily weights, renal function and electrolytes; avoid nephrotoxins and hypotension 4. Anemia; baseline hemoglobin is not available; we will monitor H&H closely; order stool occult blood; start patient on Protonix; order iron studies 5. Hypertension; patient takes lisinopril at home which has been placed on hold 6. Hyperlipidemia; we will resume statin therapy in form of Lipitor 40 mg daily at bedtime once patient clears swallow evaluation 7. COPD; not in exacerbation; continue with home inhaler therapy 8. Diabetes mellitus type 2 controlled with insulin; patient takes insulin 7030 20 units before breakfast and 14 units before supper; Trulicity 0.75 mg subcu every Saturday; we will hold off on scheduled insulin dose and monitor Accu-Cheks every before meals and at bedtime with insulin sliding scale DVT prophylaxis; SCDs CODE STATUS; full code
[2022-10-20 13:45] LABS: Chol/HDL Ratio 1.96 Ratio; LDL Cholesterol,Calculated 28.6 mg/dL (0.0-131.0); VLDL Calculation 16.26 mg/dL (5.00-40.00)
[2022-10-20] MEDS: HEPARIN SODIUM,PORCINE/PF 5,000 UNIT/0.5 ML SYRINGE SQ SCH ×2 (15:28→23:41)
[2022-10-20 16:28] LABS: Glucose,Whole Blood 167 mg/dL (70-110)
--- NOTE | 2022-10-20 18:26 | P.PN ---
Subjective Progress Note Date: 10/20/22 72-year-old female with extensive past medical history presents emergency department via EMS for right upper or right lower extremity weakness. The patient was just discharged from the hospital yesterday and stated that she was at home when approximately at 9:30 AM, the patient stated that she had a head ache and then had weakness in the right lower and right upper extremity. The patient contacted her physician who told her to come to the emergency department for evaluation. The patient did arrive later in the afternoon. On arrival, the patient stated that she had some increasing shakiness in the right upper extremity stated that her reported weakness was the same. The patient denied any other acute pain or complaints including any lightheadedness, dizziness as well as any chest pain or shortness of breath. The patient was resting in bed comfortably. Blood work completed in ED reveals a WBC of 6.7, hemoglobin of 8.4, platelet count of 281, sodium of 135, potassium 4.4, BUN/creatinine of 14/1.17, troponin of less than 0.012 EKG reveals sinus tachycardia without any acute ST or T-wave changes Chest x-ray is negative for any acute cardiopulmonary disease CT brain reveals no acute intracranial abnormality CTA head and neck reveals possible moderate focal stenosis at the junction of P1 and P2 segment of right ASSOCIATE DRAFTER otherwise no evidence of large vessel intracranial arterial occlusion Patient is admitted for further neurology workup Objective - Vital Signs Vital signs: Vital Signs Temp 97.8 F 10/20/22 15:27 Pulse 79 10/20/22 15:27 Resp 16 10/20/22 15:27 BP 111/73 10/20/22 15:27 Pulse Ox 92 L 10/20/22 15:27 FiO2 Intake & Output 10/19/22 10/20/22 10/20/22 18:59 06:59 18:59 Intake Total 118 Output Total 900 1700 Balance -900 -1582 Weight 139.706 kg 139.706 kg Intake: Oral 118 Output: Urine 900 1700 Other: Voiding Method External Catheter Bedside Commode External Catheter # Voids 1 # Bowel Movements 1 - Exam GENERAL: The patient is alert and oriented x3, not in any acute distress. Well developed, well nourished. HEENT: Pupils are round and equally reacting to light. EOMI. No scleral icterus. No conjunctival pallor. Normocephalic, atraumatic. No pharyngeal erythema. No thyromegaly. CARDIOVASCULAR: S1 and S2 present. No murmurs, rubs, or gallops. PULMONARY: Chest is clear to auscultation, no wheezing or crackles. ABDOMEN: Soft, nontender, nondistended, normoactive bowel sounds. No palpable organomegaly. MUSCULOSKELETAL: No joint swelling or deformity. EXTREMITIES: No cyanosis, clubbing, or pedal edema. NEUROLOGICAL: Gross neurological examination did not reveal any focal deficits. SKIN: No rashes. - Labs CBC & Chem 7: 10/20/22 06:43 10/20/22 06:43 Labs: Abnormal Lab Results - Last 24 Hours (Table) 10/19/22 10/20/22 10/20/22 Range/Units 18:29 05:58 06:43 RBC (3.80-5.40) m/uL Hgb (11.4-16.0) gm/dL Hct (34.0-46.0) % RDW (11.5-15.5) % Creatinine 1.11 H (0.52-1.04) mg/dL Glucose 111 H (74-99) mg/dL POC Glucose (mg/dL) 113 H 129 H (70-110) mg/dL Calcium 8.3 L (8.4-10.2) mg/dL 10/20/22 10/20/22 Range/Units 06:43 16:26 RBC 3.18 L (3.80-5.40) m/uL Hgb 8.1 L (11.4-16.0) gm/dL Hct 25.8 L (34.0-46.0) % RDW 17.2 H (11.5-15.5) % Creatinine (0.52-1.04) mg/dL Glucose (74-99) mg/dL POC Glucose (mg/dL) 167 H (70-110) mg/dL Calcium (8.4-10.2) mg/dL Assessment and Plan Assessment: 1. Right-sided weakness; acute versus subacute ischemic CVA CT of the head is reported as no acute intracranial abnormality seen. I personally reviewed this to the head and I feel the questionably the patient has right hypodensity over the posterolateral temporal/occipital region. Otherwise no mass effect, no bleed. CT angiography of the head is reported as possible moderate focal stenosis at the junction of P1 and the P2 segment of the right ASSOCIATE DRAFTER. Otherwise allowing for the exam and limitation, no evidence of large vessel intracranial arterial occlusion. No other significant stenosis or aneurysm at changes seen. CT angiography of the neck is reported as wildly patent vertebral and carotid arteries of the neck allowing for the examination limitation. Cardiomegaly. Groundglass changes in the visualized lung could represent generalized atelectasis. Correlate to exclude pulmonary vascular congestion. Stroke code was activated by the ED team and initial NIH per the ED is a 3. No IV TPA since the patient is outside the window and the risk outweighed the benefit. -- Patient will be admitted to telemetry; keep nothing by mouth until evaluated by FACILITIES MANAGER; neuro checks per protocol - Monitor Accu-Cheks with plans to keep blood glucose less than 160; monitor blood pressure closely and treat if systolic blood pressures greater than 220 or diastolic blood pressures greater than 120 -- Neurology is consulted; appreciate their input in patient care 2. Episodic transient uncontrolled tremors right side; possible TIA; neurology to see patient 3. Mild acute renal injury; IV fluids in form of normal saline at a rate of 100 mL an hour; we will monitor strict KRYSTAL's, daily weights, renal function and electrolytes; avoid nephrotoxins and hypotension 4. Anemia; baseline hemoglobin is not available; we will monitor H&H closely; order stool occult blood; start patient on Protonix; order iron studies 5. Hypertension; patient takes lisinopril at home which has been placed on hold 6. Hyperlipidemia; we will resume statin therapy in form of Lipitor 40 mg daily at bedtime once patient clears swallow evaluation 7. COPD; not in exacerbation; continue with home inhaler therapy 8. Diabetes mellitus type 2 controlled with insulin; patient takes insulin 7030 20 units before breakfast and 14 units before supper; Trulicity 0.75 mg subcu every Saturday; we will hold off on scheduled insulin dose and monitor Accu-Cheks every before meals and at bedtime with insulin sliding scale DVT prophylaxis; SCDs CODE STATUS; full code
[2022-10-20 20:03] LABS: Glucose,Whole Blood 127 mg/dL (70-110)
[2022-10-20] MEDS: ALBUTEROL NEBULIZED 2.5 MG/3 ML INHALATION PRN (20:19)
[2022-10-20] MEDS: DULoxetine HCL 60 MG CAPSULE.DR PO SCH (21:11)
[2022-10-20] MEDS: ATORVASTATIN 40 MG TAB PO SCH (21:11)
[2022-10-21 05:50] LABS: Anisocytosis Slight; Basophils # (A) 0.1 k/uL (0-0.2); Basophils % (A) 1 %; Eosinophils # (A) 0.4 k/uL (0-0.7); Eosinophils % (A) 7 %; HCT 26.1 % (34.0-46.0); HGB 8.3 gm/dL (11.4-16.0); Hypochromasia Slight; Lymphocytes # (A) 1.6 k/uL (1.0-4.8); Lymphocytes % (A) 29 %; MCH 25.5 pg (25.0-35.0); MCHC 31.8 g/dL (31.0-37.0); Mean Platelet Volume 7.8; Microcytosis Slight; Monocytes # (A) 0.6 k/uL (0-1.0); Monocytes % (A) 10 %; Neutrophils # (A) 2.8 k/uL (1.3-7.7); Neutrophils % (A) 50 %; Platelet Count 287 k/uL (150-450); RBC 3.27 m/uL (3.80-5.40); RDW 17.2 % (11.5-15.5); WBC 5.7 k/uL (3.8-10.6)
[2022-10-21 06:02] LABS: Calcium 8.5 mg/dL (8.4-10.2); Potassium 4.4 mmol/L (3.5-5.1)
[2022-10-21 06:16] LABS: Glucose,Whole Blood 153 mg/dL (70-110)
[2022-10-21] MEDS: INSULN ASP PRT/INSULIN ASPART 100 UNIT/ML 10 ML VIAL SQ SCH ×2 (06:55→17:39)
[2022-10-21] MEDS: ALBUTEROL NEBULIZED 2.5 MG/3 ML INHALATION PRN (07:54)
[2022-10-21] MEDS ORDERED: ERGOCALCIFEROL 1,250 MCG (50,000 IU) CAPSULE PO SCH (09:00)
[2022-10-21] MEDS: POTASSIUM CHLORIDE ER 10 MEQ TAB.ER.PRT PO SCH (09:02)
[2022-10-21] MEDS: HEPARIN SODIUM,PORCINE/PF 5,000 UNIT/0.5 ML SYRINGE SQ SCH ×3 (09:02→23:18)
[2022-10-21] MEDS: FUROSEMIDE 20 MG TAB PO SCH (09:02)
[2022-10-21] MEDS: tiZANidine 4 MG TAB PO SCH ×2 (09:02→20:35)
[2022-10-21] MEDS: GABAPENTIN 300 MG CAP PO SCH ×3 (09:02→21:36)
[2022-10-21] MEDS: lisinopriL 20 MG TAB PO SCH (09:03)
[2022-10-21] MEDS: SODIUM CHLORIDE 0.9% 1,000 ML IV SCH ×2 (09:03→17:58)
[2022-10-21 11:45] LABS: Glucose,Whole Blood 114 mg/dL (70-110)
[2022-10-21] MEDS: traMADol 50 MG TAB PO PRN ×2 (12:10→20:34)
[2022-10-21] MEDS: PANTOPRAZOLE 40 MG TABLET PO SCH ×2 (12:10→16:45)
--- NOTE | 2022-10-21 14:30 | P.PN ---
Subjective Progress Note Date: 10/21/22 The patient seen at bedside and is accompanied with her nurse and is seems the patient has not had any further fluctuation in her symptoms since yesterday afternoon. Patient feels she is about the same. Pending the MRI of the brain which the likely will be done tomorrow Objective - Vital Signs Vital signs: Vital Signs Temp 98.0 F 10/21/22 12:08 Pulse 79 10/21/22 12:08 Resp 18 10/21/22 12:08 BP 99/66 10/21/22 12:08 Pulse Ox 92 L 10/21/22 12:08 FiO2 Intake & Output 10/20/22 10/21/22 10/21/22 18:59 06:59 18:59 Intake Total 118 1620 Output Total 1700 2300 600 Balance -1582 -2300 1020 Intake: IV 300 Sodium Chloride 0.9% 1, 300 000 ml @ 100 mls/hr IV . Q10H GEOR[place]ES Rx#:[id number] Oral 118 1320 Output: Urine 1700 2300 600 Other: Voiding Method Bedside Commode Bedside Commode Bedside Commode External Catheter # Voids 1 1 # Bowel Movements 1 1 - Exam GENERAL: The patient is a morbid obese woman sitting in a recliner chair and is not in acute distress. NEUROLOGICAL: Higher mental function: The patient is awake, alert, oriented to self, place and time. Patient is following commands. No aphasia and no neglect. Cranial nerves: The pupils are round, equal and reactive to light and accommodation. Visual wal[place] are full to confrontation throughout. Extraocular movement is intact no nystagmus is noted. Facial sensation is normal to touch throughout. The facial strength is normal throughout. Hearing is normal bilaterally to hand rub. Tongue is midline and moved [id number] without any difficulty. No dysarthria is noted. Shoulder shrug is normal bilaterally. Motor: The strength is right side is 4- (limitation in the right upper because of pain due to arthritis). Otherwise 5 over 5 throughout. on left Normal tone and bulk. Has lymphedema of bilateral lowers. Cerebellum: Normal finger to nose bilaterally. Sensation: Sensation is decreased in the right lower to touch. Reflexes (right/left): Hard to assess because of patient obesity. Plantars are mute bilaterally. Some of the workup during his hospital visit consisted of: Initial serum glucose is 103, sodium is 135, calcium is 8.3, AST and ALT is within normal limits Lipid panel is a triglyceride of 81, cholesterol of 92, LDL is 28 and HDL is [address] of the head is reported as no acute intracranial abnormality seen. I personally reviewed this to the head and I feel the questionably the patient has right hypodensity over the posterolateral temporal/occipital region. Otherwise no mass effect, no bleed. CT angiography of the head is reported as possible moderate focal stenosis at the junction of P1 and the P2 segment of the right MANAGER SERVICE DESK. Otherwise allowing for the exam and limitation, no evidence of large vessel intracranial arterial occlusion. No other significant stenosis or aneurysm at changes seen. CT angiography of the neck is reported as wildly patent vertebral and carotid arteries of the neck allowing for the examination limitation. Cardiomegaly. Groundglass changes in the visualized lung could represent generalized atelectasis. Correlate to exclude pulmonary vascular congestion. - Labs CBC & Chem 7: 10/21/22 05:32 10/21/22 05:32 Labs: Abnormal Lab Results - Last 24 Hours (Table) 10/20/22 10/20/22 10/21/22 Range/Units 16:26 20:01 05:32 RBC 3.27 L (3.80-5.40) m/uL Hgb 8.3 L (11.4-16.0) gm/dL Hct 26.1 L (34.0-46.0) % RDW 17.2 H (11.5-15.5) % Creatinine (0.52-1.04) mg/dL Glucose (74-99) mg/dL POC Glucose (mg/dL) 167 H 127 H (70-110) mg/dL 10/21/22 10/21/22 10/21/22 Range/Units 05:32 06:13 11:43 RBC (3.80-5.40) m/uL Hgb (11.4-16.0) gm/dL Hct (34.0-46.0) % RDW (11.5-15.5) % Creatinine 1.13 H (0.52-1.04) mg/dL Glucose 120 H (74-99) mg/dL POC Glucose (mg/dL) 153 H 114 H (70-110) mg/dL Assessment and Plan Assessment: Right-sided weakness with numbness for the past couples weeks but has worsened yesterday: Probable subacute ischemic stroke Transient episode of uncontrolled tremor drinking over the right side: Possible due to above Diabetes mellitus History of Leg cellulitis 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 EEG will be performed this Saturday. In the ED the patient was given aspirin 325 once. I will not start the patient on antiplatelets for now since the records the patient she has history of epistaxis and she was on aspirin and was discontinued by her physician because of concern of medication effect. If she does have a stroke will consider possibly Plavix 75 mg daily. Continue Lipitor 10 mg daily at bedtime percentage of reflexes 2D echo pending. Every 4 hours neuro checks On cardiac monitoring PT OT and INBOUND TELEMARKETER is consulted We'll defer the rest of the medical management to primary team For DVT prophylaxis IOn subcu heparin 5000 units every 8 hours Plan is discussed with patient and her nurse. Dr. Ritchie will start neurology service tomorrow a.m. Time with Patient: Less than 30
--- NOTE | 2022-10-21 16:33 | P.PN ---
Subjective Progress Note Date: 10/21/22 Principal diagnosis: Right-sided weakness/acute versus subacute ischemic CVA Episode of transient uncontrolled tremors right side/ possible TIA Acute renal injury- mild Anemia 72-year-old female with extensive past medical history presents emergency depa rtment via EMS for right upper or right lower extremity weakness. The patient was just discharged from the hospital yesterday and stated that she was at home when approximately at 9:30 AM, the patient stated that she had a headache and then had weakness in the right lower and right upper extremity. The patient contacted her physician who told her to come to the emergency department for evaluation. The patient did arrive later in the afternoon. On arrival, the patient stated that she had some increasing shakiness in the right upper extremity stated that her reported weakness was the same. The patient denied any other acute pain or complaints including any lightheadedness, dizziness as well as any chest pain or shortness of breath. The patient was resting in bed comfortably. Blood work completed in ED reveals a WBC of 6.7, hemoglobin of 8.4, platelet count of 281, sodium of 135, potassium 4.4, BUN/creatinine of 14/1.17, troponin of less than 0.012 EKG reveals sinus tachycardia without any acute ST or T-wave changes Chest x-ray is negative for any acute cardiopulmonary disease CT brain reveals no acute intracranial abnormality CTA head and neck reveals possible moderate focal stenosis at the junction of P1 and P2 segment of right LAB AIDE otherwise no evidence of large vessel intracranial arterial occlusion Patient is admitted for further neurology workup 24 hour interval change 10/21/22 The patient seen at bedside and is accompanied with her nurse and is seems the patient has not had any further fluctuation in her symptoms since yesterday afternoon. Patient feels she is about the same. Pending the MRI of the brain which the likely will be done tomorrow MRI of the brain as well as MRA of the head and neck to rule out stroke as well as any focal stenosis are pending Pending routine EEG since the patient's having tremors uncontrolled jerking on the right side yesterday but that resolved to rule out any seizure activity with active or any epileptiform discharges that increases risk for seizures. EEG will be performed this Saturday. In the ED the patient was given aspirin 325 once. Patient has history of epistaxis while on aspirin and was taken off of it by PCP; we will not start the patient on antiplatelets for now. If she does have a stroke will consider possibly Plavix 75 mg daily. Continue Lipitor 10 mg daily at bedtime for second antwon stroke prophylaxis 2D echo pending. Every 4 hours neuro checks On cardiac monitoring PT OT and MACHINE FILLER SHREDDER is consulted Objective - Vital Signs Vital signs: Vital Signs Temp 98.2 F 10/21/22 09:00 Pulse 94 10/21/22 09:00 Resp 16 10/21/22 09:00 BP 119/71 10/21/22 09:00 Pulse Ox 93 L 10/21/22 09:00 FiO2 Intake & Output 10/20/22 10/21/22 10/21/22 18:59 06:59 18:59 Intake Total 118 240 Output Total 1700 2300 Balance -1582 -2300 240 Intake: Oral 118 240 Output: Urine 1700 2300 Other: Voiding Method Bedside Commode Bedside Commode External Catheter # Voids 1 1 # Bowel Movements 1 1 - Exam GENERAL: The patient is alert and oriented x3, not in any acute distress. Well developed, well nourished. HEENT: Pupils are round and equally reacting to light. EOMI. No scleral icterus. No conjunctival pallor. Normocephalic, atraumatic. No pharyngeal erythema. No thyromegaly. CARDIOVASCULAR: S1 and S2 present. No murmurs, rubs, or gallops. PULMONARY: Chest is clear to auscultation, no wheezing or crackles. ABDOMEN: Soft, nontender, nondistended, normoactive bowel sounds. No palpable organomegaly. MUSCULOSKELETAL: No joint swelling or deformity. EXTREMITIES: No cyanosis, clubbing, or pedal edema. NEUROLOGICAL: Gross neurological examination did not reveal any focal deficits. SKIN: No rashes. - Labs CBC & Chem 7: 10/21/22 05:32 10/21/22 05:32 Labs: Abnormal Lab Results - Last 24 Hours (Table) 10/20/22 10/20/22 10/21/22 Range/Units 16:26 20:01 05:32 RBC 3.27 L (3.80-5.40) m/uL Hgb 8.3 L (11.4-16.0) gm/dL Hct 26.1 L (34.0-46.0) % RDW 17.2 H (11.5-15.5) % Creatinine (0.52-1.04) mg/dL Glucose (74-99) mg/dL POC Glucose (mg/dL) 167 H 127 H (70-110) mg/dL 10/21/22 10/21/22 Range/Units 05:32 06:13 RBC (3.80-5.40) m/uL Hgb (11.4-16.0) gm/dL Hct (34.0-46.0) % RDW (11.5-15.5) % Creatinine 1.13 H (0.52-1.04) mg/dL Glucose 120 H (74-99) mg/dL POC Glucose (mg/dL) 153 H (70-110) mg/dL Assessment and Plan Assessment: 1. Right-sided weakness; acute versus subacute ischemic CVA CT of the head is reported as no acute intracranial abnormality seen. I personally reviewed this to the head and I feel the questionably the patient has right hypodensity over the posterolateral temporal/occipital region. Otherwise no mass effect, no bleed. CT angiography of the head is reported as possible moderate focal stenosis at the junction of P1 and the P2 segment of the right LAB AIDE. Otherwise allowing for the exam and limitation, no evidence of large vessel intracranial arterial occlusion. No other significant stenosis or aneurysm at changes seen. CT angiography of the neck is reported as wildly patent vertebral and carotid arteries of the neck allowing for the examination limitation. Cardiomegaly. Groundglass changes in the visualized lung could represent generalized atelectasis. Correlate to exclude pulmonary vascular congestion. Stroke code was activated by the ED team and initial NIH per the ED is a 3. No IV TPA since the patient is outside the window and the risk outweighed the benefit. -- Patient will be admitted to telemetry; keep nothing by mouth until evaluated by MACHINE FILLER SHREDDER; neuro checks per protocol - Monitor Accu-Cheks with plans to keep blood glucose less than 160; monitor blood pressure closely and treat if systolic blood pressures greater than 220 or diastolic blood pressures greater than 120 -- Neurology is consulted; appreciate their input in patient care 2. Episodic transient uncontrolled tremors right side; possible TIA; neurology to see patient 3. Mild acute renal injury; IV fluids in form of normal saline at a rate of 100 mL an hour; we will monitor strict KRYSTAL's, daily weights, renal function and electrolytes; avoid nephrotoxins and hypotension 4. Anemia; baseline hemoglobin is not available; we will monitor H&H closely; order stool occult blood; start patient on Protonix; order iron studies 5. Hypertension; patient takes lisinopril at home which has been placed on hold 6. Hyperlipidemia; we will resume statin therapy in form of Lipitor 40 mg daily at bedtime once patient clears swallow evaluation 7. COPD; not in exacerbation; continue with home inhaler therapy 8. Diabetes mellitus type 2 controlled with insulin; patient takes insulin 7030 20 units before breakfast and 14 units before supper; Trulicity 0.75 mg subcu every Saturday; we will hold off on scheduled insulin dose and monitor Accu-Cheks every before meals and at bedtime with insulin sliding scale DVT prophylaxis; SCDs CODE STATUS; full code
[2022-10-21 16:59] LABS: % Iron Saturation 6.99 (12.00-45.00); Ferritin 12.9 ng/mL (10.0-291.0)
[2022-10-21 17:13] LABS: Glucose,Whole Blood 113 mg/dL (70-110)
[2022-10-21] MEDS: ALBUTEROL NEBULIZED 2.5 MG/3 ML INHALATION SCH (20:00)
[2022-10-21 20:21] LABS: Glucose,Whole Blood 134 mg/dL (70-110)
[2022-10-21] MEDS: DULoxetine HCL 60 MG CAPSULE.DR PO SCH (20:35)
[2022-10-21] MEDS: ATORVASTATIN 40 MG TAB PO SCH (20:35)
[2022-10-22 00:12] LABS: Glucose,Whole Blood 208 mg/dL (70-110)
[2022-10-22] MEDS: SODIUM CHLORIDE 0.9% 1,000 ML IV SCH ×2 (03:33→17:16)
[2022-10-22 06:14] LABS: Glucose,Whole Blood 157 mg/dL (70-110)
[2022-10-22] MEDS: PANTOPRAZOLE 40 MG TABLET PO SCH ×2 (06:37→17:16)
[2022-10-22] MEDS: ALBUTEROL NEBULIZED 2.5 MG/3 ML INHALATION SCH ×3 (08:09→20:33)
[2022-10-22 08:28] LABS: Anisocytosis Slight; Basophils # (A) 0.1 k/uL (0-0.2); Basophils % (A) 2 %; Eosinophils # (A) 0.3 k/uL (0-0.7); Eosinophils % (A) 7 %; HCT 26.3 % (34.0-46.0); HGB 8.3 gm/dL (11.4-16.0); Hypochromasia Slight; Lymphocytes # (A) 1.8 k/uL (1.0-4.8); Lymphocytes % (A) 35 %; MCH 25.6 pg (25.0-35.0); MCHC 31.4 g/dL (31.0-37.0); MCV 81.5 fL (80.0-100.0); Mean Platelet Volume 7.7; Monocytes # (A) 0.5 k/uL (0-1.0); Monocytes % (A) 10 %; Neutrophils # (A) 2.3 k/uL (1.3-7.7); Neutrophils % (A) 45 %; Platelet Count 253 k/uL (150-450); RBC 3.22 m/uL (3.80-5.40); RDW 17.2 % (11.5-15.5); WBC 5.1 k/uL (3.8-10.6)
[2022-10-22] MEDS: GABAPENTIN 300 MG CAP PO SCH ×3 (08:34→20:14)
[2022-10-22] MEDS: tiZANidine 4 MG TAB PO SCH ×2 (08:34→20:13)
[2022-10-22] MEDS: HEPARIN SODIUM,PORCINE/PF 5,000 UNIT/0.5 ML SYRINGE SQ SCH ×3 (08:34→23:26)
[2022-10-22] MEDS: FUROSEMIDE 20 MG TAB PO SCH (08:34)
[2022-10-22] MEDS: POTASSIUM CHLORIDE ER 10 MEQ TAB.ER.PRT PO SCH (08:34)
[2022-10-22] MEDS: lisinopriL 20 MG TAB PO SCH (08:34)
[2022-10-22] MEDS: INSULN ASP PRT/INSULIN ASPART 100 UNIT/ML 10 ML VIAL SQ SCH ×2 (08:35→16:51)
[2022-10-22 08:50] LABS: Calcium 7.9 mg/dL (8.4-10.2); Potassium 4.2 mmol/L (3.5-5.1)
[2022-10-22 12:15] LABS: Glucose,Whole Blood 144 mg/dL (70-110)
--- NOTE | 2022-10-22 14:32 | MR ---
EXAMINATION TYPE: MR brain wo/w con DATE OF EXAM: 10/22/2022 COMPARISON: CT study 3 days earlier HISTORY: Patient moving, keeps falling asleep and snoring. Right-sided weakness and shaking. TECHNIQUE: Multiplanar, multisequence images of the brain and brainstem is performed without and with IV contras t, utilizing 13 mL intravenous Gadavist . FINDINGS: Exam suboptimal as patient unable to stop moving. Diffusion weighted images demonstrate no evidence of a recent infarct or other diffusion abnormality. There is mild ventricular and sulcal pr ominence. Scattered foci of T2 intensity are seen throughout the white matter bilaterally. Approximat landon 15 scattered lesions are seen on MRI. Lesions are nonspecific in appearance and distribution. Midline structures demonstrate normal morphology. The craniocervical junction appears within normal limits. Spondylolisthesis and disc space narrowing C3-C4 level is redemonstrated. Post contrast image s demonstrate no abnormal enhancement. The dural venous sinuses appear patent. The visualized sinuses are clear and the globes are intact. Nasal septal deviation is redemonstrated. IMPRESSION: Suboptimal study. No MRI evidence for recent infarct. There is mild diffuse cerebral atro phy and nonspecific white matter changes favor product of chronic small vessel change in patient of t his age noted.
--- NOTE | 2022-10-22 14:37 | MR ---
EXAMINATION TYPE: MR angio head wo con DATE OF EXAM: 10/22/2022 COMPARISON: Same-day contrast-enhanced MRI brain. CTA had 3 days ago. HISTORY: Patient moving, keeps falling asleep and snoring. TECHNIQUE: Time of flight images focusing on the [place] of [place] were performed without contrast.. 2-D and 3-D postprocessing imaging is performed on independent workstation. FINDINGS: Suboptimal study due to motion artifact degradation. Tortuous course to the distal right ve rtebral artery redemonstrated. Vertebral arteries remain patent to the basilar junction. Focal area o f diminished caliber or narrowing image 82 series 401 could reflect artifact versus significant focal stenosis. CTA study also suboptimal due to poor contrast bolus. Hypoplastic bilateral posterior comm unicating arteries redemonstrated. No focal aneurysm in the posterior circulation. Improved visualiza tion of portion of the anterior cerebral arteries on this study. Artifact degradation distal internal carotid arteries bilaterally makes evaluation at this level suboptimal. No definitive aneurysm or si gnificant stenosis in the anterior circulation. IMPRESSION: Suboptimal study. Portions are nondiagnostic. No obvious aneurysm at the level of the cir griselda of [place]. Possible focal significant stenosis in the basilar artery.
--- NOTE | 2022-10-22 15:41 | P.PN ---
Subjective Progress Note Date: 10/22/22 This is a 72-year-old female admitted with right-sided weakness accompanied by numbness and expressive aphasia worsening over 2 weeks with suspected subacute ischemic stroke. Evaluated by neurology with neuro. workup in progress. Scheduled for MRI of the brain, MRA of the head and neck, echo. Brain CT reported no acute intracranial abnormality-questionable right hypodensity over posterior lateral temporal/occipital region per neurology's review. CT of neck reported widely patent vertebral and carotid arteries, cardiomegaly, groundglass changes in the visualized lung, possibly atelectasis. CT of head reported possible moderate focal stenosis at the junction of P1 and P2 segment of the right ACLS NURSE. Currently reports symptoms have resolved and is back at baseline. Ambulating with walker. Speech evaluation pending. Continues on IV fluids. Denies chest pain, palpitations or shortness of breath. Objective - Vital Signs Vital signs: Vital Signs Temp 98.1 F 10/22/22 04:00 Pulse 86 10/22/22 08:10 Resp 16 10/22/22 08:00 BP 128/78 10/22/22 08:00 Pulse Ox 92 L 10/22/22 08:10 FiO2 Intake & Output 10/21/22 10/22/22 10/22/22 18:59 06:59 18:59 Intake Total 2160 1000 Output Total 600 800 Balance 1560 200 Intake: IV 300 Sodium Chloride 0.9% 1, 300 000 ml @ 100 mls/hr IV . Q10H [place] Rx#:[id number] Oral 1860 1000 Output: Urine 600 800 Other: Voiding Method Bedside Commode Bedside Commode Bedside Commode - Exam PHYSICAL EXAM: VITAL SIGNS: [As above] GENERAL: Sitting up in bed, no acute distress HEENT: Conjunctivae normal. eyes normal. NECK: No JVD. No thyroid enlargement. No LNs CARDIOVASCULAR: S1, S2 regular.. No murmur RESPIRATION: Breath sounds diminished in the bases. No rhonchi or crackles. No bronchial breathing. ABDOMEN: Soft, nontender . No guarding. no masses palpable. No ascites, No hepatosplenomegaly.Bowel sounds heard. LEGS: Positive lymphedema. Left lateral healed diabetic ulcer. PSYCHIATRY: Alert and oriented X3, mood and affect normal. NERVOUS SYSTEM: Cranial N 2-12 grossly normal. Moves all 4 limbs, mildly decreased right upper extremity weakness secondary to arthritic pain. No focal deficits. Strength and sensation grossly intact. Skin: Warm and dry. - Labs CBC & Chem 7: 10/22/22 07:41 10/22/22 07:41 Labs: Abnormal Lab Results - Last 24 Hours (Table) 10/21/22 10/21/22 10/21/22 Range/Units 05:32 11:43 17:11 RBC (3.80-5.40) m/uL Hgb (11.4-16.0) gm/dL Hct (34.0-46.0) % RDW (11.5-15.5) % Sodium (137-145) mmol/L Creatinine (0.52-1.04) mg/dL Glucose (74-99) mg/dL POC Glucose (mg/dL) 114 H 113 H (70-110) mg/dL Calcium (8.4-10.2) mg/dL Iron 23 L (50-170) ug/dL % Saturation 6.99 L (12.00-45.00) 10/21/22 10/22/22 10/22/22 Range/Units 20:19 00:10 06:12 RBC (3.80-5.40) m/uL Hgb (11.4-16.0) gm/dL Hct (34.0-46.0) % RDW (11.5-15.5) % Sodium (137-145) mmol/L Creatinine (0.52-1.04) mg/dL Glucose (74-99) mg/dL POC Glucose (mg/dL) 134 H 208 H 157 H (70-110) mg/dL Calcium (8.4-10.2) mg/dL Iron (50-170) ug/dL % Saturation (12.00-45.00) 10/22/22 10/22/22 Range/Units 07:41 07:41 RBC 3.22 L (3.80-5.40) m/uL Hgb 8.3 L (11.4-16.0) gm/dL Hct 26.3 L (34.0-46.0) % RDW 17.2 H (11.5-15.5) % Sodium 136 L (137-145) mmol/L Creatinine 1.11 H (0.52-1.04) mg/dL Glucose 171 H (74-99) mg/dL POC Glucose (mg/dL) (70-110) mg/dL Calcium 7.9 L (8.4-10.2) mg/dL Iron (50-170) ug/dL % Saturation (12.00-45.00) Assessment and Plan Assessment: Right-sided weakness accompanied by pain expressive aphasia and numbness worsening over couple weeks, suspect subacute ischemic stroke Atelectasis Diabetes mellitus II, A1c pending History of left leg cellulitis with healed diabetic ulcer of left lateral calf. Morbid obesity, BMI 58.2 Osteoarthritis Plan: Continue on current medication regime ,monitoring and symptomatic treatment. Neurology workup in progress/MRI and MRA pending. Speech therapy consult in place, evaluation/ recommendations pending. Echo pending. Aggressive pulmonary toileting with incentive spirometer ordered. Hemoglobin A1c pending. Consulted Dr. Camacho for potential inpatient rehab, at [place]. The impression and plan of care has been dictated as directed. : I performed a history and examination of this patient, discussed the same with the dictator. I agree with the dictator's note ,documented as a scribe. Any additional findings or plans will be noted.
[2022-10-22 17:24] LABS: Glucose,Whole Blood 182 mg/dL (70-110)
--- NOTE | 2022-10-22 18:09 | CA ---
Transthoracic Echo Report Name: Sadia Quesada Age: 72 Gender: F : 1950 Exam Date: 10/22/2022 11:59 Exam Location: [facility] Ht (in): 61 Wt (lb): 308 Ordering Physician: Taco See MD Attending/Referring Phys: Child Custody Evaluator Keron Mesa RDCS Procedure CPT: Indications: stroke Cardiac Hx: Technical Quality: Fair Contrast 1: Total Dose (mL): Contrast 2: Total Dose (mL): MEASUREMENTS (Male / Female) Normal Values 2D ECHO LV Diastolic Diameter PLAX 5.5 cm 4.2 - 5.9 / 3.9 - 5.3 cm LV Systolic Diameter PLAX 4.2 cm IVS Diastolic Thickness 1.2 cm 0.6 - 1.0 / 0.6 - 0.9 cm LVPW Diastolic Thickness 1.5 cm 0.6 - 1.0 / 0.6 - 0.9 cm LV Relative Wall Thickness 0.5 RV Internal Dim ED PLAX 3.0 cm M-MODE Aortic Root Diameter MM 2.5 cm LA Systolic Diameter MM 4.6 cm LA Ao Ratio MM 1.9 AV Cusp Separation MM 1.7 cm DOPPLER AV Peak Velocity 137.1 cm/s AV Peak Gradient 7.5 mmHg LVOT Peak Velocity 66.5 cm/s LVOT Peak Gradient 1.8 mmHg MV Area PHT 4.7 cm??? MR Peak Velocity 463.8 cm/s MR Peak Gradient 86.1 mmHg Mitral E Point Velocity 78.7 cm/s Mitral A Point Velocity 63.3 cm/s Mitral E to A Ratio 1.2 MV Deceleration Time 161.8 ms TR Peak Velocity 294.4 cm/s TR Peak Gradient 34.7 mmHg FINDINGS Left Ventricle Mildly increased septal wall thickness. Moderately increased posterior wall thickness. Mildly increased left ventricular diastolic diameter. Left ventricular ejection fraction is estimated at 50%. Right Ventricle Mild right ventricular dilatation. Normal right ventricular global systolic function. Right Atrium Normal right atrial size. Left Atrium Moderate left atrial dilatation. Mitral Valve Mitral valve thickened. Moderate mitral regurgitation. Aortic Valve Trileaflet aortic valve. No aortic regurgitation. No aortic stenosis. Tricuspid Valve [id number] tricuspid regurgitation. Pulmonic Valve Pulmonic valve not well visualized. Pericardium No pericardial or pleural effusion. Aorta Normal size aortic root and proximal ascending aorta. CONCLUSIONS Normal LV function Moderate mitral regurgitation Previewed by: Dr. Jesús Perez MD (Electronically Signed) Final Date: 22 October 2022 18:08
[2022-10-22 20:12] LABS: Glucose,Whole Blood 131 mg/dL (70-110)
[2022-10-22] MEDS: DULoxetine HCL 60 MG CAPSULE.DR PO SCH (20:13)
[2022-10-22] MEDS: ATORVASTATIN 40 MG TAB PO SCH (20:14)
[2022-10-22] MEDS: traMADol 50 MG TAB PO PRN (20:16)
--- NOTE | 2022-10-22 20:56 | EEG ---
ELECTROENCEPHALOGRAM REPORT PREAMBLE: This is a 72-year-old female with uncontrolled tremor. This study is performed to evaluate for any epileptiform activity. CURRENT MEDICATIONS: 1. Albuterol. 2. Lipitor. 3. Cymbalta. 4. Lasix. 5. Neurontin. 6. Insulin. 7. Zestril. 8. Protonix. 9. Zanaflex. 10.Ultram. EEG FINDINGS: This is a 21-channel digital EEG recorded with video competent, utilizing 10/20 International System with referential and bipolar montages. Background consists of well-developed, well-regulated, moderate-voltage activity in 9 Hz alpha. Background is posterior dominant and reactive to eye opening and closing. The photic driving response was not seen. Drowsiness and then stage II sleep were seen with appearance of bilaterally symmetric theta and delta frequency rhythm with sleep spindles. No focal or generalized epileptiform activity was seen. IMPRESSION: This is a normal EEG during wakefulness, drowsiness, and stage II sleep. No epileptiform activity was seen. MMODL / IJN: [id number] /
[2022-10-23 00:07] LABS: Glucose,Whole Blood 169 mg/dL (70-110)
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
[2022-10-23] MEDS: PANTOPRAZOLE 40 MG TABLET PO SCH ×2 (05:58→17:00)
[2022-10-23 06:07] LABS: Glucose,Whole Blood 147 mg/dL (70-110)
[2022-10-23] MEDS: SODIUM CHLORIDE 0.9% 1,000 ML IV SCH ×2 (06:17→20:35)
[2022-10-23 07:08] LABS: Glucose,Whole Blood 129 mg/dL (70-110)
[2022-10-23] MEDS: ALBUTEROL NEBULIZED 2.5 MG/3 ML INHALATION SCH ×3 (08:38→20:40)
[2022-10-23] MEDS: INSULN ASP PRT/INSULIN ASPART 100 UNIT/ML 10 ML VIAL SQ SCH ×2 (08:55→17:00)
[2022-10-23] MEDS: FUROSEMIDE 20 MG TAB PO SCH (08:55)
[2022-10-23] MEDS: POTASSIUM CHLORIDE ER 10 MEQ TAB.ER.PRT PO SCH (08:55)
[2022-10-23] MEDS: HEPARIN SODIUM,PORCINE/PF 5,000 UNIT/0.5 ML SYRINGE SQ SCH ×3 (08:55→23:22)
[2022-10-23] MEDS: lisinopriL 20 MG TAB PO SCH (08:55)
[2022-10-23] MEDS: GABAPENTIN 300 MG CAP PO SCH ×3 (08:55→20:43)
[2022-10-23] MEDS: tiZANidine 4 MG TAB PO SCH ×2 (08:56→20:43)
[2022-10-23] MEDS: traMADol 50 MG TAB PO PRN ×2 (09:01→17:02)
[2022-10-23 12:05] LABS: Glucose,Whole Blood 119 mg/dL (70-110)
--- NOTE | 2022-10-23 14:34 | P.PN ---
Subjective Progress Note Date: 10/23/22 This is a 72-year-old female admitted with right-sided weakness accompanied by numbness and expressive aphasia worsening over 2 weeks with suspected subacute ischemic stroke. Evaluated by neurology with neuro. workup in progress. Scheduled for MRI of the brain, MRA of the head and neck, echo. Brain CT reported no acute intracranial abnormality-questionable right hypodensity over posterior lateral temporal/occipital region per neurology's review. CT of neck reported widely patent vertebral and carotid arteries, cardiomegaly, groundglass changes in the visualized lung, possibly atelectasis. CT of head reported possible moderate focal stenosis at the junction of P1 and P2 segment of the right [employer]DEL [employer] SUPER[employer]OR. Currently reports symptoms have resolved and is back at baseline. Ambulating with walker. Speech evaluation pending. Continues on IV fluids. Denies chest pain, palpitations or shortness of breath. 10/23/22 head MRI reported suboptimal study, portions nondiagnostic, no obvious aneurysm at the [place], possible focal significant stenosis in the basilar artery. Brain MRI reported suboptimal study, no evidence for recent infarct, mild diffuse cerebral atrophy and nonspecific white matter changes favoring chronic small vessel change. Further review of radiology studies and recommendations per neurology pending. Evaluated by speech therapy for both swallowing as well as speech/language with no deficits noted/treatment not warranted at this time. Ambulating, tolerating exertion well, denies lightheadedness, dizziness or focal deficits. Hemoglobin A1c 6.7, blood sugars controlled. Echo reported normal LV function, moderate mitral regurgitation. Denies chest pain, palpitations. Objective - Vital Signs Vital signs: Vital Signs Temp 97.9 F 10/23/22 11:38 Pulse 80 10/23/22 12:25 Resp 18 10/23/22 11:38 BP 134/52 10/23/22 11:38 Pulse Ox 92 L 10/23/22 11:38 FiO2 Intake & Output 10/22/22 10/23/22 10/23/22 18:59 06:59 18:59 Output Total 1900 Balance -1900 Output: Urine 1900 Other: Voiding Method Bedside Commode Bedside Commode Bedside Commode # Bowel Movements 1 - Exam PHYSICAL EXAM: VITAL SIGNS: [As above] GENERAL: Sitting up in bed, no acute distress HEENT: Conjunctivae normal. eyes normal. NECK: No JVD. No thyroid enlargement. No LNs CARDIOVASCULAR: S1, S2 regular.. No murmur RESPIRATION: Breath sounds diminished in the bases. No rhonchi or crackles. No bronchial breathing. ABDOMEN: Soft, nontender . No guarding. no masses palpable. No ascites, No hepatosplenomegaly.Bowel sounds heard. LEGS: Positive lymphedema. Left lateral healed diabetic ulcer. PSYCHIATRY: Alert and oriented X3, mood and affect normal. NERVOUS SYSTEM: Cranial N 2-12 grossly normal. Moves all 4 limbs, mildly decreased right upper extremity weakness. No focal deficits. Strength and sensation grossly intact. Skin: Warm and dry. - Labs CBC & Chem 7: 10/22/22 07:41 10/22/22 07:41 Labs: Abnormal Lab Results - Last 24 Hours (Table) 10/22/22 10/22/22 10/22/22 Range/Units 05:00 17:22 20:10 POC Glucose (mg/dL) 182 H 131 H (70-110) mg/dL Hemoglobin A1c 6.7 H (0.0-6.0) % 10/23/22 10/23/22 10/23/22 Range/Units 00:04 06:05 07:06 POC Glucose (mg/dL) 169 H 147 H 129 H (70-110) mg/dL Hemoglobin A1c (0.0-6.0) % 10/23/22 Range/Units 12:03 POC Glucose (mg/dL) 119 H (70-110) mg/dL Hemoglobin A1c (0.0-6.0) % Assessment and Plan Assessment: Right-sided weakness accompanied by pain expressive aphasia and numbness worsening over couple weeks, suspect subacute ischemic stroke. 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 Moderate mitral regurgitation Atelectasis Diabetes mellitus II, A1c 6.7 History of left leg cellulitis with healed diabetic ulcer of left lateral calf. Morbid obesity, BMI 58.2 Osteoarthritis Plan: Continue on current medication regime ,monitoring and symptomatic treatment. Neurology review of MRI and MRA with further recommendations pending. Maintain aggressive pulmonary toileting with incentive spirometer reinforced. Discharge planning in progress for Medicare and medical inpatient rehab pending final recommendations,clearance per nephrology and authorization. The impression and plan of care has been dictated as directed. : I performed a history and examination of this patient, discussed the same with the dictator. I agree with the dictator's note ,documented as a scribe. Any additional findings or plans will be noted.
--- NOTE | 2022-10-23 15:22 | P.PN ---
Subjective Progress Note Date: 10/23/22 Patient was seen for a follow-up. Patient was initially seen by Dr. Taco See. Please refer to his note for details. Patient has history of diabetes, presented with right-sided weakness as well as uncontrolled shaking on the right side for the past couple weeks. Also has tremor. No seizure-like activity, loss of consciousness, urinary incontinence or tongue bite. Patient has history of epistaxis. Currently not on antiplatelet medication. Patient states that on 10/19/2021, she woke up real weak on the right side, losing train of thought, couldn't get words out. She had a horrible headache pointing to the left occipital region. The headache lasted for a few hours but then it shifted to the right side of the neck there is hurting now 5/10. Patient believes the right side is still weak involving the arm and leg but not the face. Patient states that she has smoked one third pack per day for 17 years, quit in 1985. She also has diabetic neuropathy. Some of the workup during his hospital visit consisted of: Initial serum glucose is 103, sodium is 135, calcium is 8.3, AST and ALT is within normal limits CT of the head is reported as no acute intracranial abnormality seen. I personally reviewed this to the head and I feel the questionably the patient has right hypodensity over the posterolateral temporal/occipital region. Otherwise no mass effect, no bleed. CT angiography of the head is reported as possible moderate focal stenosis at the junction of P1 and the P2 segment of the right TRAFFIC CONTROL OPERATOR. Otherwise allowing for the exam and limitation, no evidence of large vessel intracranial arterial occlusion. No other significant stenosis or aneurysm at changes seen. CT angiography of the neck is reported as wildly patent vertebral and carotid arteries of the neck allowing for the examination limitation. Cardiomegaly. Groundglass changes in the visualized lung could represent generalized atelectasis. Correlate to exclude pulmonary vascular congestion. Stroke code was activated by the ED team and initial NIH per the ED is a 3. No IV TPA since the patient is outside the window and the risk outweighed the benefit. ED spoke with stroke Attending (Dr. Johnson) No intervention according to the ED note the was notified by the stroke team Objective - Vital Signs Vital signs: Vital Signs Temp 98.1 F 10/23/22 07:47 Pulse 82 10/23/22 08:47 Resp 18 10/23/22 07:47 BP 124/61 10/23/22 07:47 Pulse Ox 95 10/23/22 08:39 FiO2 Intake & Output 10/22/22 10/23/22 10/23/22 18:59 06:59 18:59 Output Total 1900 Balance -1900 Output: Urine 1900 Other: Voiding Method Bedside Commode Bedside Commode Bedside Commode # Bowel Movements 1 - Exam Patient's mental status, speech and language functions are normal. Cranial nerves are normal. On muscle strength testing (right/left) deltoid 4+5-/5, biceps 5/5, triceps 5/5, executive pilot 4/5. In the lower limbs hip flexion is 4-/4-, ankle dorsiflexion 5-/5. Cerebellar functions revealed tremulousness for [id number] testing bilaterally. No ataxia. Sensations are equal. She does have peripheral neuropathy. Patient has peripheral edema. - Labs CBC & Chem 7: 10/22/22 07:41 10/22/22 07:41 Labs: Abnormal Lab Results - Last 24 Hours (Table) 10/22/22 10/22/22 10/22/22 Range/Units 05:00 12:13 17:22 POC Glucose (mg/dL) 144 H 182 H (70-110) mg/dL Hemoglobin A1c 6.7 H (0.0-6.0) % 10/22/22 10/23/22 10/23/22 Range/Units 20:10 00:04 06:05 POC Glucose (mg/dL) 131 H 169 H 147 H (70-110) mg/dL Hemoglobin A1c (0.0-6.0) % 10/23/22 Range/Units 07:06 POC Glucose (mg/dL) 129 H (70-110) mg/dL Hemoglobin A1c (0.0-6.0) % Assessment and Plan Assessment: Right-sided weakness with numbness for the past couples weeks but has worsened the day prior to arrival: No evidence of an acute stroke. Rule out TIA. Transient episode of uncontrolled tremor jerking over the right side: Possible due to above Cervicalgia, right-sided weakness. Rule out spinal stenosis. Diabetes mellitus History of Leg cellulitis Peripheral edema in the lower extremity Morbid obesity Osteoarthritis Plan: MRI of the brain was a suboptimal study. No MRI evidence for recent infarct. There is mild diffuse cerebral atrophy and nonspecific white matter changes favor product of chronic small vessel changes. I personally reviewed MRI, agree with the findings. MRA of the head without contrast was suboptimal study. Portions are n ondiagnostic. No obvious aneurysm at the level of [place]. Possible focal significant stenosis in the basilar artery. I personally reviewed MRI of the brain, agree with the findings. Apparently CTA of the head did not reveal any significant basilar stenosis on my review. EEG was normal during wakefulness, drowsiness and stage II sleep. No epileptiform activity was seen. In the ED the patient was given aspirin 325 once. Patient bleeds easily. We will hold off on antiplatelet medication at this time pending other test results. Patient continues to have symptoms. MRI of the brain negative for acute stroke. Patient does have cervicalgia. Check MRI of the cervical spine, rule out spinal stenosis. 2D echo revealed normal left ventricular function with EF 50%. Moderate increased posterior wall thickness. Moderate mitral regurgitation. Moderate left atrial dilation. Hemoglobin A1c 6.7. Lipid panel with cholesterol 92, LDL 28, HDL 46 and triglycerides 81. Continue Lipitor 10 mg daily. On cardiac monitoring PT OT and SR. STRATEGIC SOURCING MANAGER is consulted For DVT prophylaxis IOn subcu heparin 5000 units every 8 hours
[2022-10-23 16:58] LABS: Glucose,Whole Blood 127 mg/dL (70-110)
[2022-10-23 20:35] LABS: Glucose,Whole Blood 98 mg/dL (70-110)
[2022-10-23] MEDS: DULoxetine HCL 60 MG CAPSULE.DR PO SCH (20:43)
[2022-10-23] MEDS: ATORVASTATIN 40 MG TAB PO SCH (20:43)
[2022-10-24] MEDS: SODIUM CHLORIDE 0.9% 1,000 ML IV SCH ×3 (00:56→16:20)
[2022-10-24] MEDS: PANTOPRAZOLE 40 MG TABLET PO SCH ×2 (06:08→16:49)
[2022-10-24 06:29] LABS: Glucose,Whole Blood 130 mg/dL (70-110)
[2022-10-24] MEDS: HEPARIN SODIUM,PORCINE/PF 5,000 UNIT/0.5 ML SYRINGE SQ SCH ×2 (07:41→16:49)
[2022-10-24] MEDS: tiZANidine 4 MG TAB PO SCH (07:42)
[2022-10-24] MEDS: INSULN ASP PRT/INSULIN ASPART 100 UNIT/ML 10 ML VIAL SQ SCH ×2 (07:42→16:48)
[2022-10-24] MEDS: GABAPENTIN 300 MG CAP PO SCH ×2 (07:42→16:49)
[2022-10-24] MEDS: lisinopriL 20 MG TAB PO SCH (07:42)
[2022-10-24] MEDS: POTASSIUM CHLORIDE ER 10 MEQ TAB.ER.PRT PO SCH (07:42)
[2022-10-24] MEDS: traMADol 50 MG TAB PO PRN ×2 (07:42→16:49)
[2022-10-24] MEDS: FUROSEMIDE 20 MG TAB PO SCH (07:43)
[2022-10-24] MEDS: ALBUTEROL NEBULIZED 2.5 MG/3 ML INHALATION SCH ×2 (08:47→11:53)
--- NOTE | 2022-10-24 10:12 | P.DS ---
Providers Date of admission: 10/19/22 19:09 Expected date of discharge: 10/24/22 Attending physician: Dirk Butler Consults: 10/19/22 19:08 Consult Physician Routine Consulting Provider: Taco See Consult Reason/Comments: CVA Do you want consulting provider notified?: Yes, Notify in am 10/22/22 12:02 Consult Physician Routine Consulting Provider: Perfecto Lancaster Consult Reason/Comments: eval for IPR Do you want consulting provider notified?: Yes Primary care physician: Dirk Butler Hospital Course: Final Diagnoses: Right-sided weakness accompanied by pain expressive aphasia and numbness worsening over couple weeks, no evidence of acute stroke as per neurology; possible TIA. 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 MRI C-spine pending-rule out spinal stenosis. Moderate mitral regurgitation Atelectasis Diabetes mellitus II, A1c 6.7 History of left leg cellulitis with healed diabetic ulcer of left lateral calf. Morbid obesity, BMI 58.2 Osteoarthritis Hospital course:This is a 72-year-old female admitted with right-sided weakness accompanied by numbness and expressive aphasia worsening over 2 weeks with suspected subacute ischemic stroke. Evaluated by neurology with neuro. workup in progress. Scheduled for MRI of the brain, MRA of the head and neck, echo. Brain CT reported no acute intracranial abnormality-questionable right hypodensity over posterior lateral temporal/occipital region per neurology's review. CT of neck reported widely patent vertebral and carotid arteries, cardiomegaly, groundglass changes in the visualized lung, possibly atelectasis. CT of head reported possible moderate focal stenosis at the junction of P1 and P2 segment of the right FOURTH GRADE TEACHER. Currently reports symptoms have resolved and is back at baseline. Ambulating with walker. Speech evaluation pending. Continues on IV fluids. Denies chest pain, palpitations or shortness of breath. 10/23/22 head MRI reported suboptimal study, portions nondiagnostic, no obvious aneurysm at the [place], possible focal significant stenosis in the basilar artery. Brain MRI reported suboptimal study, no evidence for recent infarct, mild diffuse cerebral atrophy and nonspecific white matter changes favoring chronic small vessel change. Further review of radiology studies and recommendations per neurology pending. Evaluated by speech therapy for both swallowing as well as speech/language with no deficits noted/treatment not warranted at this time. Ambulating, tolerating exertion well, denies lightheadedness, dizziness or focal deficits. Hemoglobin A1c 6.7, blood sugars controlled. Echo reported normal LV function, moderate mitral regurgitation. Denies chest pain, palpitations. Brain MRI and Mra of head further reviewed by neurology, recommending MRI of C- spine to rule out spinal stenosis. Significant clinical improvement. Patient will be discharged to [facility] rehab., in a stable condition with guarded prognosis, pending C-spine MRI, final DC recommendations and clearance per neurology and authorization. The impression and plan of care has been dictated as directed. : I performed a history and examination of this patient, discussed the same with the dictator. I agree with the dictator's note ,documented as a scribe. Any a dditional findings or plans will be noted. Patient Condition at Discharge: Stable Plan - Discharge Summary Discharge Rx Participant: No New Discharge Prescriptions: New Pantoprazole [Protonix] 40 mg PO AC-BID tab Continue lisinopriL [Prinivil] 20 mg PO DAILY Albuterol Inhaler [Ventolin Hfa Inhaler] 2 puff INHALATION RT-Q6H PRN PRN Reason: Shortness Of Breath Dulaglutide [Trulicity] 0.75 mg SQ ALATORRE tiZANidine [Zanaflex] 4 mg PO BID Insulin Aspart Prot/Insuln Asp [Novolog Mix 70-30 Flexpen] 20 unit SQ W/BRKFST Insulin Aspart Prot/Insuln Asp [Novolog Mix 70-30 Flexpen] 14 unit SQ W/SUPPER Furosemide [Lasix] 20 mg PO DAILY traMADol HCL 50 mg PO TID PRN #9 tab PRN Reason: Pain Potassium Chloride ER [K-Dur 10] 10 meq PO DAILY DULoxetine HCL [Cymbalta] 60 mg PO HS Atorvastatin [Lipitor] 40 mg PO HS Ergocalciferol [Vitamin D2 (1250 Mcg = 45636 Iu)] 1,250 mcg PO ALATORRE Gabapentin [Neurontin] 300 mg PO TID #9 cap Discharge Medication List lisinopriL [Prinivil] 20 mg PO DAILY 07/15/14 [History] Albuterol Inhaler [Ventolin Hfa Inhaler] 2 puff INHALATION RT-Q6H PRN 01/05/16 [History] Atorvastatin [Lipitor] 40 mg PO HS 10/19/22 [History] DULoxetine HCL [Cymbalta] 60 mg PO HS 10/19/22 [History] Dulaglutide [Trulicity] 0.75 mg SQ ALATORRE 10/19/22 [History] Ergocalciferol [Vitamin D2 (1250 Mcg = 82069 Iu)] 1,250 mcg PO ALATORRE 10/19/22 [History] Furosemide [Lasix] 20 mg PO DAILY 10/19/22 [History] Insulin Aspart Prot/Insuln Asp [Novolog Mix 70-30 Flexpen] 14 unit SQ W/SUPPER 10/19/22 [History] Insulin Aspart Prot/Insuln Asp [Novolog Mix 70-30 Flexpen] 20 unit SQ W/BRKFST 10/19/22 [History] Potassium Chloride ER [K-Dur 10] 10 meq PO DAILY 10/19/22 [History] tiZANidine [Zanaflex] 4 mg PO BID 10/19/22 [History] Gabapentin [Neurontin] 300 mg PO TID #9 cap 10/24/22 [Rx] Pantoprazole [Protonix] 40 mg PO AC-BID tab 10/24/22 [Rx] traMADol HCL 50 mg PO TID PRN #9 tab 10/24/22 [Rx] Follow up Appointment(s)/Referral(s): Dirk Butler DO [Primary Care Provider] - 1 Week (After DC from subacute rehab)
--- NOTE | 2022-10-24 11:40 | MR ---
MRI CERVICAL SPINE: CLINICAL HISTORY: Neck pain, right sided weakness. Neck pain, right sided weakness. TECHNIQUE: Multiplanar, multisequence imaging of the cervical spine is performed without IV contrast. COMPARISON: CTA neck 5 days ago FINDINGS: The exam is noted suboptimal due to large body habitus along with patient motion and noncoo peration. There is persistent dextroconvex scoliosis centered in the upper thoracic spine. Sagittal i mages of the cervical spine show the craniocervical junction to remain within normal limits. The cer vical and upper thoracic spinal cord is grossly normal in caliber and signal. Some artifact degradati on. No obvious abnormalities seen. Slight grade 1 retrolisthesis C3 on C4 is redemonstrated. There is grade 1 retrolisthesis C5 on C6 redemonstrated. The vertebral body heights are normal. Moderate dis c space narrowing and mild to moderate spurring C3-C4 and C4-C5 levels redemonstrated. Bone marrow si gnal intensity is preserved. Axial images at C2-C3 level show right-sided uncovertebral facet degenerative change causing asymmetr ic mild right-sided neural foraminal narrowing. Axial images overall are suboptimal with artifact degradation in evaluating degree of neural foramina l narrowing below C3-C4 level. Axial images at C3-C4 level showed broad based posterior disc protrusion effacing the anterior thecal sac with artifact degradation, there is suspected moderate bilateral neural foraminal narrowing. Axial images at C4-C5 levels from broad-based left paracentral disc protrusion effacing the anterior thecal sac. Axial images at C5-C6 level through C7-T1 levels show posterior disc herniations effacing the anterio r thecal sac. Cannot accurately qualify degree of neural foraminal narrowing bilaterally. IMPRESSION: Suboptimal study. Scoliotic curvature redemonstrated. Multilevel spondylolisthesis and de generative change seen as detailed above.
[2022-10-24 12:02] LABS: Glucose,Whole Blood 136 mg/dL (70-110)
[2022-10-24 12:15] VITALS: RESP 18
[2022-10-24 13:12] VITALS: BMI 58.1
[2022-10-24 16:41] LABS: Glucose,Whole Blood 119 mg/dL (70-110)
--- NOTE | 2022-10-24 16:49 | P.CNOR ---
History of Present Illness - [facility] Consult date: 10/24/22 Requesting physician: Bia Ritchie Consult reason: other (Right sided weakness, neg brain MRI, C spinal stenosis listhesis) History of present illness: Patient is a 72-year-old female who presented emergency department on 10/19/2022 due to right-sided weakness. Patient says about 1 month ago she presented to the hospital due to right-sided weakness. Patient says this worsened over the past week. Patient says she did let her dog out and when the dog came back and she noticed she had a headache with increasing weakness and shaking in the right upper extremity as well as weakness in the right lower extremity. Patient then came in to the hospital. Over the past several days since patient was then the hospital she reports improved symptoms. Patient denies saddle anesthesia/pe rineal numbness/tingling. Patient denies any previous orthopedic surgical history. Patient states that most of her pain is in her low back as well as her neck. Patient denies having any falls/traumas over the past 1 month since she has had increasing weakness. Patient denies chest pain, fever, shortness of breath, nausea, vomiting, change in vision, loss of bowel/bladder control. Patient says she is not have any headaches currently. She notes some weakness in the right upper extremity and right lower extremity, but both have been resolving over the past few days since coming the hospital. Patient denies any radiation of pain from the midline in the cervical spine and lumbar spine. Past Medical History Past Medical History: Cancer, COPD, Diabetes Mellitus, GERD/Reflux, Hyperlipidemia, Hypertension, Osteoarthritis (OA), Pneumonia Additional Past Medical History / Comment(s): AFTER HEART CATH APPROX 1 YEARS AGO states TAKES Linsinopril As preventative for cad, does not have htn or cad.SKIN CACNER ON HER CHEEK, TAKES TUMS FOR HEARTBURN. RT LEG CELLULITS. History of Any Multi-Drug Resistant Organisms: None Reported Past Surgical History: Section, Heart Catheterization, Hysterectomy Additional Past Surgical History / Comment(s): surgical repair of nose 1981.SKIN CANCER REMOVED FROM HER CHEEK Past Anesthesia/Blood Transfusion Reactions: No Reported Reaction Past Psychological History: No Psychological Hx Reported Smoking Status: Former smoker Past Alcohol Use History: None Reported, Rare Past Drug Use History: None Reported - Past Family History Father Family Medical History: Deep Vein Thrombosis (DVT) Mother Family Medical History: Cancer Medications and Allergies Home Medications Medication Instructions Recorded Confirmed Type lisinopriL [Prinivil] 20 mg PO DAILY 07/15/14 10/19/22 History Albuterol Inhaler [Ventolin Hfa 2 puff INHALATION RT-Q6H PRN 01/05/16 10/19/22 History Inhaler] Atorvastatin [Lipitor] 40 mg PO HS 10/19/22 10/19/22 History DULoxetine HCL [Cymbalta] 60 mg PO HS 10/19/22 10/19/22 History Dulaglutide [Trulicity] 0.75 mg SQ ALATORRE 10/19/22 10/19/22 History Ergocalciferol [Vitamin D2 (1250 1,250 mcg PO ALATORRE 10/19/22 10/19/22 History Mcg = 61066 Iu)] Furosemide [Lasix] 20 mg PO DAILY 10/19/22 10/19/22 History Insulin Aspart Prot/Insuln Asp 14 unit SQ W/SUPPER 10/19/22 10/19/22 History [Novolog Mix 70-30 Flexpen] Insulin Aspart Prot/Insuln Asp 20 unit SQ W/BRKFST 10/19/22 10/19/22 History [Novolog Mix 70-30 Flexpen] Potassium Chloride ER [K-Dur 10] 10 meq PO DAILY 10/19/22 10/19/22 History tiZANidine [Zanaflex] 4 mg PO BID 10/19/22 10/19/22 History Ascorbic Acid [Vitamin C] 500 mg PO BID #60 tablet 10/24/22 Rx Gabapentin [Neurontin] 300 mg PO TID #9 cap 10/24/22 Rx Pantoprazole [Protonix] 40 mg PO AC-BID tab 10/24/22 Rx Zinc Sulfate [Orazinc] 220 mg PO DAILY #30 capsule 10/24/22 Rx predniSONE 10 mg PO DIRECTED #30 tab 10/24/22 Rx traMADol HCL 50 mg PO TID PRN #9 tab 10/24/22 Rx Allergies Allergy/AdvReac Type Severity Reaction Status Date / Time egg AdvReac Diarrhea Verified 10/19/22 16:56 Physical Examination Inspection: Negative for any open fractures, significant ecchymosis/ulcers. Erythema present in the bilateral lower extremities in the calf region likely early stages of cellulitis. Sensation: Sensation is equal, symmetric, bilateral intact throughout the upper and lower extremities Palpation: Moderate TTP at midline throughout cervical spine and at midline in lumbar spine. NTTP throughout rest of exam. Range of motion: Patient has full range of motion left upper extremity and shoulder for elevation, abduction, external/internal rotation, elbow flexion/extension, wrist flexion and extension. 110 degrees right shoulder forward elevation. Abduction 90 on the right shoulder. Patient does have foreign motion in right elbow in flexion/extension. Patient does have some li mited range of motion bilaterally in hip flexion/extension due to referred pain from the back. Patient is lying motion and bilateral lower extremities and knee flexion/extension and ankle dorsi/plantar flexion. Motor: Parking Enforcement Manager strength 4-/5 bilaterally. 3+/5 in resisted right elbow flexion/extension, right shoulder forward elevation, external/internal rotation and abduction. 4/5 in resisted wrist flexion/extension bilaterally. Left upper extremity 4/5 resisted shoulder forward elevation, abduction, external/internal rotation in elbow flexion/extension. 4/5 in all major motor bilateral lower ex tremities. Neurovascular status: Radial pulses intact bilaterally. Cap refill under 3 seconds in digits of upper extremities. Special tests: Negative Homans bilaterally. Negative clonus bilaterally. Positive Vijay's on the right side. Negative Vijay left Results - Labs Labs: Abnormal Lab Results - Last 24 Hours (Table) 10/23/22 10/24/22 10/24/22 Range/Units 16:57 06:28 10:01 POC Glucose (mg/dL) 127 H 130 H (70-110) mg/dL Coronavirus (PCR) Detected A (Not Detectd) 10/24/22 Range/Units 12:00 POC Glucose (mg/dL) 136 H (70-110) mg/dL Coronavirus (PCR) (Not Detectd) H & H 10/19/22 10/20/22 10/21/22 Range/Units 15:51 06:43 05:32 Hgb 8.4 L 8.1 L 8.3 L (11.4-16.0) gm/dL Hct 26.9 L 25.8 L 26.1 L (34.0-46.0) % 10/22/22 Range/Units 07:41 Hgb 8.3 L (11.4-16.0) gm/dL Hct 26.3 L (34.0-46.0) % Coagulation 10/19/22 Range/Units 15:51 INR 1.0 (<1.2) Result Diagrams: 10/22/22 07:41 10/22/22 07:41 - Diagnostic results Cervical MRI with/without contrast: report reviewed, image reviewed (Cervical spine MRI does demonstrate spondylosis throughout as well as spondylolisthesis at multiple levels and neural foraminal stenosis mild to moderate at multiple levels) Assessment and Plan Assessment: 1. Right upper extremity weakness; cervicalgia; low back pain Plan: 1. Right upper extremity weakness; cervicalgia; low back pain - Cervical spine MRI does demonstrate spondylosis throughout as well as spondylolisthesis at multiple levels and neural foraminal stenosis mild to moderate at multiple levels. Patient does present with RUE weakness on exam and tremor during exam. At this time we are not recommending any emergent/urgent orthopedic surgical intervention. We are recommending conservative measures with recommendation for steroids as well as anti-inflammatories. We do recommend patient to follow-up in the outpatient setting with Dr. Rosales for further evaluation. Patient is stable from an orthopedic standpoint for discharge. We will be available as needed 2. Appreciate medical management 3. Pain management - Zanaflex; gabapentin; tramadol 4. DVT prophylaxis - heparin 5. GI prophylaxis - Protonix 6. PT/OT - weightbearing as tolerated with walker and assistance 7. Encourage incentive spirometer use 8. Appreciate consult Time with Patient: Less than 30
[2022-10-24 16:57] VITALS: BP 135/73; PULSE 71; TEMP 98.6
== END 2022-10-24 18:18 | DRG 67 ==
LOC: EC 14:53 → 3SCARD 19:09
PROVIDERS: ADMIT Family Medicine; ATTEND Family Medicine
DX: I65.1 Occlusion and stenosis of basilar artery (principal); U07.1 COVID-19; N17.9 Acute kidney failure, unspecified; L03.116 Cellulitis of left lower limb; G81.91 Hemiplegia, unspecified affecting right dominant side; L97.229 Non-pressure chronic ulcer of left calf with unspecified severity; Z68.43 Body mass index [BMI] 50.0-59.9, adult; J98.11 Atelectasis; R47.01 Aphasia; E11.42 Type 2 diabetes mellitus with diabetic polyneuropathy; E11.628 Type 2 diabetes mellitus with other skin complications; I11.9 Hypertensive heart disease without heart failure; E11.622 Type 2 diabetes mellitus with other skin ulcer; E66.01 Morbid (severe) obesity due to excess calories; D64.9 Anemia, unspecified; J44.9 Chronic obstructive pulmonary disease, unspecified; E04.1 Nontoxic single thyroid nodule; E11.65 Type 2 diabetes mellitus with hyperglycemia; I08.1 Rheumatic disorders of both mitral and tricuspid valves; I89.0 Lymphedema, not elsewhere classified; R00.0 Tachycardia, unspecified; G25.2 Other specified forms of tremor; E78.5 Hyperlipidemia, unspecified; M19.90 Unspecified osteoarthritis, unspecified site; Z74.1 Need for assistance with personal care; M54.2 Cervicalgia; M54.50 Low back pain, unspecified; R60.0 Localized edema; W19.XXXA Unspecified fall, initial encounter; Z79.899 Other long term (current) drug therapy; Z79.4 Long term (current) use of insulin; Z79.85 Long-term (current) use of injectable non-insulin antidiabetic drugs; Z91.012 Allergy to eggs; Z87.891 Personal history of nicotine dependence
CPT/HCPCS: 36415; 70450; 70496; 70498; 70544; 70553; 71046; 72141; 80048; 80053; 80061; 81003; 82272; 82728; 83036; 83540; 83550; 84443; 84484; 85025; 85610; 85730; 87635; 93005; 93306; 94640; 94760; 95816; 99291

== ENCOUNTER → 2024-02-12 | Outpatient (CLI) | payer MEDICARE, OTHER ==
--- NOTE | 2024-02-12 11:25 | MM ---
Reason for Exam: Screening (asymptomatic). Last mammogram was performed 7 year(s) and 3 month(s) ago. Patient History: Menarche at age 15. First Full-Term at age 32. Late child-bearing (after 32). Left ovary removed at age 43. Right ovary removed at age 43. Hysterectomy at age 43. Postmenopausal. Maternal grandmother had breast cancer, age 38. Risk Values: Kassandra 5 year model risk: 2.4%. NCI Lifetime model risk: 6.6%. Prior Study Comparison: 02/08/2014 Bilateral Screening Mammogram, [facility]. 02/15/2014 Left Diagnostic Mammogram, [facility]. 10/31/2016 Bilateral Screening Mammogram, [facility]. Tissue Density: There are scattered areas of fibroglandular density. Findings: Analyzed By CAD. There is no suspicious group of microcalcifications or new suspicious mass in either breast. Overall Assessment: Negative, BI-RAD 1 Management: Screening Mammogram of both breasts in 1 year. . Patient should continue monthly self-breast exams. A clinical breast exam by your physician is recommended on an annual basis. This exam should not preclude additional follow-up of suspicious palpable abnormalities. Note on Kassandra scores and lifetime risk: 1. A Kassandra score greater than 3% is considered moderate risk. If this is the case, consider specialist referral to assess eligibility for a risk reducing agent. 2. If overall lifetime risk for the development of breast cancer is 20% or higher, the patient may qualify for future screening with alternating mammogram and breast MRI. Electronically signed and approved by: Sapphire Rajan M.D. Radiologist
== END | disposition home or self-care (01) ==
LOC: RADMAMWWP 10:37
PROVIDERS: ATTEND Family Medicine
DX: Z12.31 Encounter for screening mammogram for malignant neoplasm of breast (principal); Z78.0 Asymptomatic menopausal state; Z80.3 Family history of malignant neoplasm of breast
CPT/HCPCS: 77063; 77067